=== PATIENT | male | born 1940 | race African-American/Black ===

== ENCOUNTER 2017-02-26 09:58 | Emergency (ER) | payer OTHER ==
[~2017-02-26] VITALS: Ht 177.8 cm; Wt 78.6 kg
[~2017-02-26 09:58] MED LIST: ASPCH81X PO; ENAL5TAB PO; PROP20TA4 PO; TAMS0.4C38 PO; TMPOPS15 OPB; TRAV0.00 OPB; TRSOPS2 OPB; VITAOIN TOP
[2017-02-26 10:16] VITALS: TEMP 36.4; O2SAT 96; Ht 177.8 cm; Wt 78.6 kg
[2017-02-26] MEDS ORDERED: PROMETHAZINE HCL INJ 12.5 MG in SODIUM CHLORIDE 0.9% 50ML 50 ML IV STA (10:30)
[2017-02-26] MEDS ORDERED: SODIUM CHLORIDE 0.9% 500ML 500 ML IV STA (10:30)
--- NOTE | 2017-02-26 10:59 | DIAGNOSTIC IMAGING REPORT ---
CHEST ONE VIEW PORTABLE CLINICAL HISTORY: Nausea, vomiting. COMPARISON STUDY: 10/18/2014 FINDINGS: The cardiac and mediastinal contours are normal. There is no evidence of focal pulmonary consolidation. There is no evidence of failure. No pleural effusions are visualized.[ There is a stable scoliosis. There is suspected right upper lobe emphysema. There is no free intraperitoneal air. IMPRESSION: No active disease in the chest. Electronically signed by: Ajit Urena M.D. 02/26/2017 10:57 AM Dictated Date/Time: 02/26/2017 10:57 AM
[2017-02-26 11:20] LABS: BASO % 0.1 %; BASO ABS # 0.01 K/uL (0-0.2); COMPLETE YES; EOS % 0.9 %; HEMATOCRIT 36.8 % (42-52); IG% 0.2 %; LYMPH ABS # 1.39 K/uL (1.2-3.4); MEAN CELL VOLUME 86.2 fL (80-100); MEAN CORPUSCULAR HEMOGLOBIN 29.5 pg (25-34); MEAN CORPUSCULAR HGB CONC 34.2 g/dl (32-36); MEAN PLATELET VOLUME 10.6 fL (7.4-10.4); MONO % 4.8 %; PLATELET COUNT 157 K/uL (130-400); RED BLOOD COUNT 4.27 M/uL (4.7-6.1)
[2017-02-26 11:38] LABS: BUN/CREATININE RATIO 12.7 (10-20); CALCIUM 9.3 mg/dl (8.5-10.1); CREATININE 1.1 mg/dl (0.60-1.40); MAGNESIUM 1.8 mg/dl (1.8-2.4); POTASSIUM 3.9 mmol/L (3.5-5.1)
--- NOTE | 2017-02-26 13:14 | EMERGENCY ROOM VISIT NOTE ---
History Report prepared by Barrett: Arnoldo Myers Under the Supervision of: Dr. Harley Nugent M.D. First contact with patient: 10:01 Stated Complaint: NAUSEA/ AFIB History of Present Illness The patient is a 76 year old male who presents to the ED with a cc of persistent vomiting beginning shortly prior to arrival. Patient is incarcerated. Eight episodes of vomiting total. Positive dizziness and nausea. Negative abdominal pain, chest pain, SOB, urinary symptoms, or cough. Symptoms began after breakfast. No recent trauma. Last bowel movement was yesterday, and appeared somewhat "watery". Notes that he was given eye drops today shortly prior to breakfast. Reported to have been in a-fib at the care home prior to arrival. No known history of a-fib. Source of History: patient Onset: Shortly prior to arrival Symptom Intensity: eight episodes Quality: other (vomiting) Timing: other (persistent) Associated Symptoms: + nausea, No cough, No chest pain, No SOB, No abdominal pain, No urinary symptoms Note: Additional symptoms: dizziness. Review of Systems See HPI for pertinent positives and negatives. A total of ten systems were reviewed and were otherwise negative. Past Medical & Surgical Medical Problems: (1) Depressive Disorder Nec (2) Dermatophytosis Of Foot (3) Hypertension Nos Family History No pertinent family history stated. Social History Smoking Status: Current Every Day Smoker Housing Status: other Occupation Status: other Current/Historical Medications No Active Prescriptions or Reported Meds Allergies Coded Allergies: No Known Allergies (Unverified , 11/21/11) Physical Exam Vital Signs Date Time Temp Pulse Resp B/P (MAP) Pulse Ox O2 Delivery O2 Flow Rate FiO2 02/26/17 14:04 78 18 144/87 97 02/26/17 13:33 64 16 177/83 98 Room Air 02/26/17 13:13 50 02/26/17 11:32 58 20 139/96 97 Room Air 02/26/17 10:16 96 Room Air 02/26/17 10:16 36.4 53 16 155/88 96 Room Air 02/26/17 10:15 48 Physical Exam GENERAL: Awake, alert, well-appearing, NAD HENT: Normocephalic, atraumatic. arcus senilus. Poor dentition EYES: Normal conjunctiva. Sclera non-icteric. NECK: Supple. No nuchal rigidity. FROM. RESPIRATORY: CTAB, no rhonchi, wheezing, crackles CARDIAC: Bradycardic rate with a regular rhythm, no MRG ABDOMEN: Soft, NTND, BS+ MSK: No chest wall TTP, no LE edema NEURO: GCS 15, CN 2-12 intact, ,5/5 upper extremity strength. Good finger to nose. No dysmetria. No pronator drift. No sensory deficit. SKIN: No rash or jaundice noted. Medical Decision & Procedures ER Provider Diagnostic Interpretation: X-ray: Per my interpretation, radiologist review. CHEST ONE VIEW PORTABLE FINDINGS: The cardiac and mediastinal contours are normal. There is no evidence of focal pulmonary consolidation. There is no evidence of failure. No pleural effusions are visualized.[ There is a stable scoliosis. There is suspected right upper lobe emphysema. There is no free intraperitoneal air. IMPRESSION: No active disease in the chest. Electronically signed by: Ajit Urena M.D. Laboratory Results 02/26/17 11:11 Red Blood Count 4.27, Mean Corpuscular Volume 86.2, Mean Corpuscular Hemoglobin 29.5, Mean Corpuscular Hemoglobin Concent 34.2, Mean Platelet Volume 10.6, Neutrophils (%) (Auto) 77.0, Lymphocytes (%) (Auto) 17.0, Monocytes (%) (Auto) 4.8, Eosinophils (%) (Auto) 0.9, Basophils (%) (Auto) 0.1, Neutrophils # (Auto) 6.32, Lymphocytes # (Auto) 1.39, Monocytes # (Auto) 0.39, Eosinophils # (Auto) 0.07, Basophils # (Auto) 0.01 02/26/17 11:11 Test 02/26/17 11:11 White Blood Count 8.20 K/uL (4.8-10.8) Red Blood Count 4.27 M/uL (4.7-6.1) Hemoglobin 12.6 g/dL (14.0-18.0) Hematocrit 36.8 % (42-52) Mean Corpuscular Volume 86.2 fL (80-100) Mean Corpuscular Hemoglobin 29.5 pg (25-34) Mean Corpuscular Hemoglobin Concent 34.2 g/dl (32-36) Platelet Count 157 K/uL (130-400) Mean Platelet Volume 10.6 fL (7.4-10.4) Neutrophils (%) (Auto) 77.0 % Lymphocytes (%) (Auto) 17.0 % Monocytes (%) (Auto) 4.8 % Eosinophils (%) (Auto) 0.9 % Basophils (%) (Auto) 0.1 % Neutrophils # (Auto) 6.32 K/uL (1.4-6.5) Lymphocytes # (Auto) 1.39 K/uL (1.2-3.4) Monocytes # (Auto) 0.39 K/uL (0.11-0.59) Eosinophils # (Auto) 0.07 K/uL (0-0.5) Basophils # (Auto) 0.01 K/uL (0-0.2) RDW Standard Deviation 45.2 fL (36.4-46.3) RDW Coefficient of Variation 14.4 % (11.5-14.5) Immature Granulocyte % (Auto) 0.2 % Immature Granulocyte # (Auto) 0.02 K/uL (0.00-0.02) Anion Gap 6.0 mmol/L (3-11) Est Creatinine Clear Calc Drug Dose 57.1 ml/min Estimated GFR () 74.1 Estimated GFR (Non- 64.0 BUN/Creatinine Ratio 12.7 (10-20) Calcium Level 9.3 mg/dl (8.5-10.1) Magnesium Level 1.8 mg/dl (1.8-2.4) Total Bilirubin 0.3 mg/dl (0.2-1) Direct Bilirubin 0.1 mg/dl (0-0.2) Aspartate Amino Transf (AST/SGOT) 15 U/L (15-37) Alanine Aminotransferase (ALT/SGPT) 15 U/L (12-78) Alkaline Phosphatase 67 U/L (45-117) Troponin I < 0.015 ng/ml (0-0.045) Total Protein 7.4 gm/dl (6.4-8.2) Albumin 3.5 gm/dl (3.4-5.0) Lipase 95 U/L (73-393) Laboratory results reviewed by me Medications Administered Medications (Trade) Dose Ordered Sig/Jeannine Route Start Time Stop Time Status Last Admin Dose Admin Promethazine HCl 12.5 mg/Sodium Chloride 50.5 ml @ 204 mls/hr NOW STAT IV 02/26/17 10:30 02/26/17 10:44 DC 02/26/17 11:31 204 MLS/HR Sodium Chloride 500 ml @ 500 mls/hr Q1H STAT IV 02/26/17 10:30 02/26/17 11:29 DC 02/26/17 11:30 500 MLS/HR ECG Indication: other (dizziness) Rate (beats per minute): 52 Rhythm: sinus bradycardia Findings: PAC, other (Normal intervals. LAD. No other ST changes or T-wave inversions. ) ED Course 1013: The patient was evaluated in room B7. A complete history and physical exam was performed. 1030: Ordered Sodium Chloride 500 ml @ 500 mls/hr IV, Promethazine HCl 12.5 mg/ Sodium Chloride 50.5 ml @ 204 mls/hr IV. 1225: I spoke with the patient. He would like something to eat. 1335: I reevaluated the patient. Discussed results and discharge instructions: he verbalized understanding and agreement. The patient is ready for discharge. Medical Decision The patient is a 76 year old male with a past medical history of a-fib who presents to the ED with a cc of persistent vomiting beginning shortly prior to arrival. Differential diagnosis includes but is not limited to ; inner ear malfunction, TIA, stroke, medication side effect, and ACS. Patient was seen and evaluated at the bedside. Patient did complain of some mild vertiginous symptoms. Patient had no other signs or symptoms concerning for stroke as he had no other neuro deficits. Patient's lab work was fairly unremarkable. Less likely ACS given a relatively normal EKG albeit sinus bradycardia with PACs. Patient had a negative troponin and no complaints of any chest pain or shortness of breath. Patient's chest x-ray was unremarkable. Patient was able to tolerate by mouth. Symptoms had virtually resolved. No imbalance. Patient was able ambulate without difficulty. Given improvement of symptoms less likely posterior stroke but patient told to return if he had worsening symptoms for further work up, management, and care or if symptomatic trx does not improve symptoms Patient was given strict follow-up discharged, told questions. Patient agreed with plan of care and patient was discharged back home with long enforcement. Medication Reconcilliation Current Medication List: was personally reviewed by me Blood Pressure Screening Patient's blood pressure: Elevated blood pressure Blood pressure disposition: Referred to PCP Impression Primary Impression: Vertigo Additional Impressions: Nausea & vomiting Encounter for smoking cessation counseling Scribe Attestation The scribe's documentation has been prepared under my direction and personally reviewed by me in its entirety. I confirm that the note above accurately reflects all work, treatment, procedures, and medical decision making performed by me. Departure Information Dispostion Home / Self-Care Prescriptions No Active Prescriptions or Reported Meds Referrals Kaleb DIAZ (PCP) Patient Instructions ED Vertigo Unspecified, My [facility] Additional Instructions Please return to the emergency department if you have worsening or recurrent symptoms not amenable to at-home treatment. Please call for a follow-up appointment with her primary care physician. Please take your medications as prescribed. If you have other concerns and/or complaints please feel free to also call your primary care physician's office or return the ED for further evaluation, management, and treatment. Problem Qualifiers Additional Impressions: Nausea & vomiting Vomiting type: unspecified Vomiting Intractability: non-intractable Qualified Codes: R11.2 - Nausea with vomiting, unspecified
[2017-02-26 14:04] VITALS: BP 144/87; PULSE 78; O2SAT 97
== END 2017-02-26 14:05 | disposition home or self-care (01) ==
LOC: EDBD 09:58 → C.EDB 10:00
DX: R42 Dizziness and giddiness (principal); R11.2 Nausea with vomiting, unspecified; Z71.6 Tobacco abuse counseling; I10 Essential (primary) hypertension; F32.9 Major depressive disorder, single episode, unspecified; F17.210 Nicotine dependence, cigarettes, uncomplicated

== ENCOUNTER 2017-03-27 11:37 | Emergency (ER) | payer OTHER ==
[~2017-03-27] VITALS: Ht 177.8 cm; Wt 77.7 kg
[2017-03-27 11:37] VITALS: TEMP 36.4; O2SAT 100; Ht 177.8 cm; Wt 77.7 kg
--- NOTE | 2017-03-27 11:41 | EMERGENCY ROOM VISIT NOTE ---
ED Visit Note First contact with patient: 11:37 Resident Physician Supervision Note: I interviewed and examined the patient. Discussed with Dr. Tucker and agree with findings and plan as documented in the note. Documented By: Pete Shafer
--- NOTE | 2017-03-27 11:45 | EMERGENCY ROOM VISIT NOTE ---
History First contact with patient: 11:37 Stated Complaint: SYNCOPE History of Present Illness To note patient is a poor historian. The patient is a 76 year old male who presents to the Emergency Room presenting after a syncopal episode that was unwitnessed. He notes that he was walking out of the chapel at the alf and then was found on the concrete floor. He does not remember the event and does not recall any chest pain, palpitations, SOB or nausea prior to the event. He has a history of NSTEMI x 1. He has no history of CVA. He smokes heavily, no official diagnosis of COPD. The patient is apparently at baseline according to the alf guards in the room. Source of History: patient, police History Limited By: poor cooperation Review of Systems A 10 point review of systems was completed and negative aside from above Past Medical/Surgical History Medical Problems: (1) Depressive Disorder Nec (2) Dermatophytosis Of Foot (3) Hypertension Nos NSTEMI Family History Patient reports no known family medical history. Social History Smoking Status: Current Every Day Smoker Smokeless Tobacco Use: No Alcohol Use: none Drug Use: none Marital Status: single Housing Status: other Occupation Status: other Current/Historical Medications Scheduled Amlodipine (Norvasc), 5 MG PO DAILY Aspirin (Aspirin Ec), 81 MG PO DAILY Brimonidine Tartrate (Brimonidine Tartrate), 1 DROP OPB BID Dorzolamide Hcl (Trusopt Oph), 1 DROPS OP TID Enalapril (Vasotec), 10 MG PO DAILY Latanoprost (Xalatan 0.005% Oph Kaitlynn), 1 DROPS OP HS Omeprazole (Prilosec), 20 MG PO DAILY Pilocarpine Hcl (Isopto Carpine), 1 DROP OPB QID Primidone (Mysoline), 100 MG PO DAILY Propranolol (Inderal), 40 MG PO BID Tamsulosin HCl (Tamsulosin HCl), 0.8 MG PO HS Timolol Maleate (Timolol 0.5% Oph Soln 15 Ml), 1 DROP OPB DAILY Allergies NKA Physical Exam Vital Signs Date Time Temp Pulse Resp B/P (MAP) Pulse Ox O2 Delivery O2 Flow Rate FiO2 03/27/17 13:15 51 21 119/70 97 Room Air 03/27/17 13:15 51 119/70 53 123/79 71 106/70 03/27/17 12:00 48 17 107/70 97 Room Air 03/27/17 11:53 51 03/27/17 11:37 36.4 44 22 103/67 100 Room Air 03/27/17 11:37 100 Room Air Physical Exam General: ambulatory, not in acute distress Skin: no rashes noted, no suspicious lesions, no areas of inflammations/ erythema noted, 2 cm laceration on right occiput CVS: S1/ S2 noted, RRR, no rubs/ murmurs noted, no cyanosis RVS: not in acute respiratory distress, no wheezing/ rales/ crackles noted, poor air movement ENT:no erythema/ injection/ ulcerations noted in the pharynx, no lymphadenopathy , very poor denition Neck: inspection WNL, full ROM of neck, no bruits noted ABD: BSx4, no pain/ tenderness on palpation, no organomegaly MSK: inspection of all limbs WNL, motor and sensation intact in all limbs, no swelling/ pain on palpation of joints NVS: CN ii-xii WNL, PERRL, EOMI, sensation intact in all extremities, DTR +2 Lymph: No lymphadenopathy palpable Medical Decision & Procedures ER Provider Diagnostic Interpretation: HEAD WITHOUT CONTRAST (CT) CLINICAL HISTORY: 76 years-old Male presenting with head injury. TECHNIQUE: Multidetector CT imaging of the head was performed without the use of intravenous contrast. IV contrast: None. A dose lowering technique was used consistent with the principles of ALARA (as low as reasonably achievable). COMPARISON: 10/18/2014. CT DOSE (mGy.cm): The estimated cumulative dose is 537.48 mGy.cm. FINDINGS: Powerhouse Attendant topogram: Unremarkable. Proportional ventricular and sulcal prominence, likely age-related parenchymal volume loss. Periventricular and subcortical white matter hypoattenuation, nonspecific but likely indicative of chronic small vessel ischemic change. No mass effect or midline shift. No hemorrhage or acute territorial infarct. No extra-axial fluid collection. Paranasal sinuses and mastoid air cells clear. Calvarium intact. IMPRESSION: 1. No acute intracranial pathology. CHEST ONE VIEW PORTABLE CLINICAL HISTORY: 76 years-old Male presenting with syncope. TECHNIQUE: Portable upright AP view of the chest was obtained. COMPARISON: 02/26/2017. FINDINGS: Tortuosity of the descending thoracic aorta. Cardiac silhouette normal in size. Hyperinflation. No focal infiltrate. No pleural effusion or pneumothorax. Degenerative changes of the thoracic spine. Upper abdomen normal. IMPRESSION: 1. Hyperinflation suggests emphysema. No focal infiltrate. Laboratory Results 03/27/17 13:10 Red Blood Count 4.10, Mean Corpuscular Volume 87.1, Mean Corpuscular Hemoglobin 28.8, Mean Corpuscular Hemoglobin Concent 33.1, Mean Platelet Volume 11.0, Neutrophils (%) (Auto) 77.9, Lymphocytes (%) (Auto) 14.5, Monocytes (%) (Auto) 5.3, Eosinophils (%) (Auto) 1.8, Basophils (%) (Auto) 0.1, Neutrophils # (Auto) 8.63, Lymphocytes # (Auto) 1.61, Monocytes # (Auto) 0.59, Eosinophils # (Auto) 0.20, Basophils # (Auto) 0.01 03/27/17 13:10 Test 03/27/17 11:37 03/27/17 13:10 Creatine Kinase MB Ratio (0-3.0) White Blood Count 11.08 K/uL (4.8-10.8) Red Blood Count 4.10 M/uL (4.7-6.1) Hemoglobin 11.8 g/dL (14.0-18.0) Hematocrit 35.7 % (42-52) Mean Corpuscular Volume 87.1 fL (80-100) Mean Corpuscular Hemoglobin 28.8 pg (25-34) Mean Corpuscular Hemoglobin Concent 33.1 g/dl (32-36) Platelet Count 166 K/uL (130-400) Mean Platelet Volume 11.0 fL (7.4-10.4) Neutrophils (%) (Auto) 77.9 % Lymphocytes (%) (Auto) 14.5 % Monocytes (%) (Auto) 5.3 % Eosinophils (%) (Auto) 1.8 % Basophils (%) (Auto) 0.1 % Neutrophils # (Auto) 8.63 K/uL (1.4-6.5) Lymphocytes # (Auto) 1.61 K/uL (1.2-3.4) Monocytes # (Auto) 0.59 K/uL (0.11-0.59) Eosinophils # (Auto) 0.20 K/uL (0-0.5) Basophils # (Auto) 0.01 K/uL (0-0.2) RDW Standard Deviation 46.7 fL (36.4-46.3) RDW Coefficient of Variation 14.8 % (11.5-14.5) Immature Granulocyte % (Auto) 0.4 % Immature Granulocyte # (Auto) 0.04 K/uL (0.00-0.02) Anion Gap 4.0 mmol/L (3-11) Est Creatinine Clear Calc Drug Dose 57.1 ml/min Estimated GFR () 74.1 Estimated GFR (Non- 64.0 BUN/Creatinine Ratio 16.3 (10-20) Calcium Level 8.7 mg/dl (8.5-10.1) Total Bilirubin 0.4 mg/dl (0.2-1) Aspartate Amino Transf (AST/SGOT) 17 U/L (15-37) Alanine Aminotransferase (ALT/SGPT) 20 U/L (12-78) Alkaline Phosphatase 68 U/L (45-117) Creatine Kinase MB 2.7 ng/ml (0.5-3.6) Troponin I < 0.015 ng/ml (0-0.045) Total Protein 7.2 gm/dl (6.4-8.2) Albumin 3.3 gm/dl (3.4-5.0) Globulin 3.9 gm/dl (2.5-4.0) Albumin/Globulin Ratio 0.8 (0.9-2) Chemistry Specimen Hemolysis Medications Administered Medications (Trade) Dose Ordered Sig/Jeannine Route Start Time Stop Time Status Last Admin Dose Admin Sodium Chloride 1,000 ml @ 999 mls/hr Q1H1M ONCE IV 03/27/17 12:00 03/27/17 13:00 DC 03/27/17 13:12 999 MLS/HR Albuterol/ Ipratropium (Duoneb) 3 ml NOW ONCE INH 03/27/17 12:15 03/27/17 12:16 DC 03/27/17 12:50 3 ML ECG Indication: syncope Rate (beats per minute): 49 Rhythm: sinus bradycardia Findings: no acute ischemic change, no ectopy Change: no significant change ED Course 1145: Patient was assessed and evaluated by the resident 1215; NSS bolus of 1 L, Duoneb 1245: Improvement in air entry upon reassessment 1400: Discussed discharge with patient and agreeable Medical Decision Differential diagnosis: Etiologies such as vasovagal event, infection, hypoglycemia, electrolyte abnormalities, cardiac sources, intracerebral event, toxicologic, neurologic, as well as others were entertained. This is a 76yo m that is presenting to us after an unwitnessed syncopal episode. CMP was completed and did not reveal an acute process or abnormal electrolytes. The patient's CBC revealed a mild leukocytosis however there was no source of infection. It is most likely stress induced. Anemia is close to the patient's BL and unlikely the source of syncope. CXR was suggestive of emphysema and since the patient had poor air movement a duoneb was administered and there was improved air entry after administration. The patient CT head did not reveal any intracranial pathology. This may have been a vasovagal event vs orthostasis after getting up from a pew as no acute findings at this time. Discussed with patient and guards about follow up with cardiology and discussed discharge and they were agreeable. Blood Pressure Screening Patient's blood pressure: Normal blood pressure Impression Primary Impression: Syncope Departure Information Dispostion Other Condition GOOD Referrals Kaleb DIAZ (PCP)
[2017-03-27] MEDS ORDERED: SODIUM CHLORIDE 0.9% 1000ML 1,000 ML IV ONE (12:00)
[2017-03-27] MEDS ORDERED: ALBUT/IPRATROP 3MG/0.5MG NEB 3 ML VIAL INH ONE (12:15)
--- NOTE | 2017-03-27 12:43 | DIAGNOSTIC IMAGING REPORT ---
CHEST ONE VIEW PORTABLE CLINICAL HISTORY: 76 years-old Male presenting with syncope. TECHNIQUE: Portable upright AP view of the chest was obtained. COMPARISON: 02/26/2017. FINDINGS: Tortuosity of the descending thoracic aorta. Cardiac silhouette normal in size. Hyperinflation. No focal infiltrate. No pleural effusion or pneumothorax. Degenerative changes of the thoracic spine. Upper abdomen normal. IMPRESSION: 1. Hyperinflation suggests emphysema. No focal infiltrate. Electronically signed by: Franki Christensen M.D. 03/27/2017 12:42 PM Dictated Date/Time: 03/27/2017 12:40 PM
[2017-03-27] MEDS ORDERED: ALPOPSD OPB (13:06)
[2017-03-27] MEDS ORDERED: DORZ2SOL17 OP (13:06)
[2017-03-27] MEDS ORDERED: FLM4 PO (13:06)
[2017-03-27] MEDS ORDERED: ENAL10TA88 PO (13:06)
[2017-03-27] MEDS ORDERED: PILO1SOL3 OPB (13:06)
[2017-03-27] MEDS ORDERED: AMLO-110 PO (13:06)
[2017-03-27] MEDS ORDERED: PROP20TA67 PO (13:06)
[2017-03-27] MEDS ORDERED: LATA0.5S OP (13:06)
[2017-03-27] MEDS ORDERED: PRIM50TA29 PO (13:06)
[2017-03-27] MEDS ORDERED: ASPI81TA28 PO (13:06)
[2017-03-27] MEDS ORDERED: PRLSR20 PO (13:06)
[2017-03-27] MEDS ORDERED: TMPOPS15 OPB (13:06)
[2017-03-27 13:32] LABS: BASO % 0.1 %; BASO ABS # 0.01 K/uL (0-0.2); COMPLETE YES; EOS % 1.8 %; HEMATOCRIT 35.7 % (42-52); IG% 0.4 %; LYMPH % 14.5 %; LYMPH ABS # 1.61 K/uL (1.2-3.4); MEAN CELL VOLUME 87.1 fL (80-100); MEAN CORPUSCULAR HEMOGLOBIN 28.8 pg (25-34); MEAN CORPUSCULAR HGB CONC 33.1 g/dl (32-36); MONO % 5.3 %; NEUT % 77.9 %; PLATELET COUNT 166 K/uL (130-400); WHITE BLOOD COUNT 11.08 K/uL (4.8-10.8)
[2017-03-27 13:50] LABS: ALB/GLOB RATIO 0.8 (0.9-2); ALKALINE PHOSPHATASE 68 U/L (45-117); ALT/SGPT 20 U/L (12-78); AST/SGOT 17 U/L (15-37); BLOOD UREA NITROGEN 18 mg/dl (7-18); BUN/CREATININE RATIO 16.3 (10-20); CALCIUM 8.7 mg/dl (8.5-10.1); CARBON DIOXIDE 27 mmol/L (21-32); CHLORIDE 110 mmol/L (98-107); GLUCOSE 93 mg/dl (70-99); POTASSIUM 4.8 mmol/L (3.5-5.1); SODIUM 141 mmol/L (136-145)
--- NOTE | 2017-03-27 13:53 | DIAGNOSTIC IMAGING REPORT ---
HEAD WITHOUT CONTRAST (CT) CLINICAL HISTORY: 76 years-old Male presenting with head injury. TECHNIQUE: Multidetector CT imaging of the head was performed without the use of intravenous contrast. IV contrast: None. A dose lowering technique was used consistent with the principles of ALARA (as low as reasonably achievable). COMPARISON: 10/18/2014. CT DOSE (mGy.cm): The estimated cumulative dose is 537.48 mGy.cm. FINDINGS: Barrel Assembly Inspector topogram: Unremarkable. Proportional ventricular and sulcal prominence, likely age-related parenchymal volume loss. Periventricular and subcortical white matter hypoattenuation, nonspecific but likely indicative of chronic small vessel ischemic change. No mass effect or midline shift. No hemorrhage or acute territorial infarct. No extra-axial fluid collection. Paranasal sinuses and mastoid air cells clear. Calvarium intact. IMPRESSION: 1. No acute intracranial pathology. Electronically signed by: Franki Christensen M.D. 03/27/2017 1:52 PM Dictated Date/Time: 03/27/2017 1:49 PM
[2017-03-27 15:05] VITALS: BP 133/79; PULSE 59; O2SAT 98
== END 2017-03-27 15:05 | disposition home or self-care (01) ==
LOC: EDBD 11:37 → C.EDC 11:38
DX: R55 Syncope and collapse (principal); F32.9 Major depressive disorder, single episode, unspecified; I10 Essential (primary) hypertension; I25.2 Old myocardial infarction; F17.210 Nicotine dependence, cigarettes, uncomplicated; Z79.82 Long term (current) use of aspirin; Z79.899 Other long term (current) drug therapy

== ENCOUNTER → 2017-10-07 | Day surgery (SDC) | payer OTHER ==
[2017-07-29 09:21] VITALS: BMI 24.0
[2017-10-04 11:17] VITALS: Ht 175.3 cm; Wt 74.1 kg
[~2017-10-07] VITALS: Ht 175.3 cm; Wt 74.1 kg
[~2017-10-07] MED LIST changes: +500ML BSS 0.3ML EPI 1:1000PF IRRIG ONE; +ACETAMINOPHEN 325 MG TAB PO PRN; +AMLO-110 PO; +AMVISC PLUS 0.8ML SYRINGE INT OCU ONE; -ASPCH81X PO; +ASPI81TA28 PO; +ATROPINE SULFATE 0.1 MG/ML 5ML SYR IV PRN; +BRIM0.15 OPB; +BSS FLUSH ONE; +COMPOUND EXT; +CYCLOPENTOLATE HCL 1% OP SOLN PER DROP CHARGE OPR SCH; +DORZ2SOL17 OPB; +ENAL10TA88 PO; -ENAL5TAB PO; +EpHEDrine SULFATE INJ 50 MG/ML AMP IV PRN; +EpINEphrine INJ 1MG/ML AMP 1 MG/ML AMP ONE; +FINA5TAB PO; +GATIFLOXACIN OP SOLN PER DROP CHARGE OPR SCH; +KETOROLAC 0.5% OP SOLN PER DROP CHARGE OPR SCH; +LACTATED RINGER'S 1000ML 500 ML IV SCH; +LATA0.009 OPB; +LIDOCAINE 3.5% OPH GEL PER APPLICATION CHARGE ONE; +LIDOCAINE HCL 1% MPF 2 ML VIAL ONE; +MIDAZOLAM HCL 1 MG/ML 2ML VIAL ONE; +MIX: 4ML BSS 1ML EPI 1:1000 PF INSTIL ONE; +OCUCOAT 1 ML SOLN IO ONE; +PHENYLEPHRINE HCL 10% OP SOLN PER DROP CHARGE OPR SCH; +PHENYLEPHRINE HCL 2.5% OP SOLN PER DROP CHARGE OPR SCH; +POVIDONE-IODINE OP SOLN 30 ML BTL ONE; +PRIM50TA34 PO; +PRLSR20 PO; -PROP20TA4 PO; +PROPARACAINE 0.5% OP SOLN PER DROP CHARGE OPR SCH; +TOBRAMYCIN/DEXAMETHASONE OPH OINT PER APPLN CHARGE ONE; -TRAV0.00 OPB; +TROPICAMIDE 1% OP SOLN PER DROP CHARGE OPR SCH; -TRSOPS2 OPB; -VITAOIN TOP; +[UNRECOGNIZED DRUG - CODE] OPB
[2017-10-07] MEDS: TROPICAMIDE 1% OP SOLN PER DROP CHARGE OPR SCH ×2 (06:38→06:45)
[2017-10-07] MEDS: PHENYLEPHRINE HCL 2.5% OP SOLN PER DROP CHARGE OPR SCH ×2 (06:39→06:44)
[2017-10-07] MEDS: CYCLOPENTOLATE HCL 1% OP SOLN PER DROP CHARGE OPR SCH ×2 (06:41→06:46)
[2017-10-07] MEDS: KETOROLAC 0.5% OP SOLN PER DROP CHARGE OPR SCH ×2 (06:42→06:47)
[2017-10-07] MEDS: GATIFLOXACIN OP SOLN PER DROP CHARGE OPR SCH ×2 (06:43→06:53)
--- NOTE | 2017-10-07 06:59 | History & Physical Bridge - SC ---
H&P Re-Evaluation Bridge Note: I have examined the patient, reviewed the History & Physical and in the interval since the performance of the History & Physical I have noted the following changes of clinical significance: No changes noted
--- NOTE | 2017-10-07 07:27 | [facility] Operative Report ---
Operative Report Date of Service Oct 07, 2017. Operative Report 1. PREOPERATIVE DIAGNOSIS: Cataract of the right eye. 2. POSTOPERATIVE DIAGNOSIS: Same. 3. PROCEDURE: Phacoemulsification with intraocular lens implantation of the right eye. SURGEON: Dr. Arnoldo Palmer. ANESTHESIA: Topical Lidocaine gel, 1% Non- Preserved intracameral Lidocaine, and monitored intravenous sedation. INDICATIONS FOR THE PROCEDURE: The patient is a 76 - year-old male with a history of cataract of the right eye causing significant visual impairment. The details of the proposed procedure were explained to the patient who asked appropriate questions and following discussion of all risks, benefits and alternatives agreed to have the procedure done. The patient had a know history of taking of flomax. 4. OPERATION AND FINDINGS: DESCRIPTION OF PROCEDURE: After informed consent was obtained, the patient was brought to the Operating Room at the [facility]. The patient was placed in a supine position and then the right eye was prepped and draped in the usual sterile fashion for intraocular surgery. A drop of topical Lidocaine gel was placed in the operative eye. A wire lid speculum was then placed in the fornices. A corneal paracentesis was then created temporally. The Non-Preserved Lidocaine was then instilled into the anterior chamber. The anterior chamber was then pressurized with viscoelastic. A malyugin ring was inserted to dilate and stabilize the pupil. A 2.0 mm clear corneal incision was then created temporally. A cystotome was inserted into the anterior chamber and used to create a tear in the anterior lens capsule. This capsular tear was then used to create a small flap and the flap was dragged in a counterclockwise direction in order to create a continuous curvilinear capsulorrhexis. Hydrodissection was accomplished with balanced salt solution. Phacoemulsification of the lens nucleus was then performed in a standard divide- and-conquer technique. The phaco time was 42 seconds with an average power of 17 %. The remaining cortical material was removed using irrigation aspiration. The capsular bag was then filled with viscoelastic. A [employer] Lomb MI60L + 19.0 diopters lens was then loaded into the injector and injected into the capsular bag. The malyugin ring was removed. The remaining viscoelastic was removed with the irrigation aspiration handpiece. The wound was hydrated and then checked and found to be watertight. The intraocular pressure was checked and found to be adequate. The wire lid speculum was removed and the patient's face was cleaned and dried. TobraDex ointment was placed in the inferior fornix. The patient was discharged to the Recovery Room having tolerated the procedure well. There were no complications. The patient will be seen tomorrow in the office for follow-up. I attest to the content of the Intraoperative Record and any orders documented therein. Any exceptions are noted below.
--- NOTE | 2017-10-07 07:28 | Discharge Instructions-SurgCtr ---
Discharge Instructions Date of Service Oct 07, 2017. Visit Reason for Visit: [id number] Discharge Discharge Diagnosis / Problem: cataract Discharge Goals Goal(s): Improve function Activity Recommendations Activity Limitations: per Instructions/Follow-up section Anesthesia . Post Anesthesia Instructions: If you have had General Anesthesia or IV Sedation: * Do not drive today. * Resume driving when surgeon permits. * Do not make important decisions or sign legal documents today. * Call surgeon for: 1. Temperature elevations greater than 101 degrees F. 2. Uncontrollable pain. 3. Excessive bleeding. 4. Persistent nausea and vomiting. 5. Medication intolerance (nausea, vomiting or rash). * For nausea and vomiting use only clear liquids such as: tea, soda, bouillon until nausea subsides, then gradually increase diet as tolerated. * If you have any concerns or questions, call your surgeon's office. If physician is unavailable and it is an emergency, call 911 or go to the nearest emergency room. . Diet Recommendations Home Diet: resume previous diet Procedures Procedures Performed: Right Cataract Phacoemulsification With Intraocular Lens Implant Pending Studies Studies pending at discharge: no Medical Emergencies . Who to Call and When: Medical Emergencies: If at any time you feel your situation is an emergency, please call 911 immediately. . Non-Emergent Contact Non-Emergency issues call your: [facility] . . "Provider Documentation" section prepared by Arnoldo Palmer. .
--- NOTE | 2017-10-07 08:00 | Anesthesiology Progress Note ---
Anesthesia Post Op Note Date & Time Oct 07, 2017 at 08:00 Vital Signs Vital Signs Past 12 Hours Date Time Temp Pulse Resp B/P (MAP) Pulse Ox O2 Delivery O2 Flow Rate FiO2 10/07/17 07:29 36.6 58 12 144/81 (102) 100 Room Air 10/07/17 06:21 36.4 67 20 132/78 (96) 100 Room Air Notes Mental Status: alert / awake / arousable, participated in evaluation Nausea / Vomiting: adequately controlled Pain: adequately controlled Airway Patency, RR, SpO2: stable & adequate BP & HR: stable & adequate Hydration State: stable & adequate Anesthetic Complications: no major complications apparent
[2017-10-07 08:01] VITALS: BP 134/76; PULSE 55; O2SAT 99
== END | disposition home or self-care (01) ==
LOC: X.SURG 06:03
PROVIDERS: ATTEND Ophthalmology
DX: H26.9 Unspecified cataract (principal); I10 Essential (primary) hypertension; J44.9 Chronic obstructive pulmonary disease, unspecified; I25.2 Old myocardial infarction; F32.9 Major depressive disorder, single episode, unspecified; Z79.899 Other long term (current) drug therapy; Z79.82 Long term (current) use of aspirin; Z90.89 Acquired absence of other organs; Z87.891 Personal history of nicotine dependence; Z85.46 Personal history of malignant neoplasm of prostate; Z98.42 Cataract extraction status, left eye

== ENCOUNTER 2018-09-08 14:23 | Inpatient (IN) ==
[2018-09-08] MEDS ORDERED: SODIUM CHLORIDE 0.9% 1000ML 2,000 ML IV ONE (15:01)
[2018-09-08] MEDS ORDERED: VANCOMYCIN CONSULT ACTIVE PRN ×2 (15:02→18:47)
[2018-09-08] MEDS ORDERED: PIPERACILLIN/TAZOBACTAM 4.5 GM/120 ML BAG IV ONE (15:02)
[2018-09-08] MEDS ORDERED: VANCOMYCIN HCL 1,250 MG in SODIUM CHLORIDE 0.9% 500 ML IV ONE (15:02)
--- NOTE | 2018-09-08 15:21 | XRay Report ---
XR chest 1V portable HISTORY: Sepsis COMPARISON: Chest 03/27/2017. FINDINGS: Slightly rotated study. The lungs are clear. The heart is normal in size. No pleural effusi ons. No pneumothorax. Suspect mild emphysema. IMPRESSION: No significant change compared to the prior study. No acute process. Electronically signed by: Chuck Medrano M.D. 09/08/2018 3:19 PM
[2018-09-08 15:23] LABS: Eosinophils # (auto) 0.04 K/uL (0-0.5); Eosinophils % (auto) 0.4 %; Hematocrit (blood only) 36.1 % (42-52); Hemoglobin 12.3 g/dL (14.0-18.0); Immature Granulocytes # (auto) 0.04 K/uL (0.00-0.02); Immature Granulocytes % (auto) 0.4 %; Lymphocytes # (auto) 0.47 K/uL (1.2-3.4); Lymphocytes % (auto) 4.6 %; Mean Corpuscular Hgb Conc 34.1 g/dL (32-36); Mean Corpuscular Volume 86.4 fL (80-100); Mean Platelet Volume 11.5 fL (7.4-10.4); Monocytes % (auto) 6.8 %; Neutrophils # (auto) 9.07 K/uL (1.4-6.5); Neutrophils % (auto) 87.8 %; Platelet Count 220 K/uL (130-400); RDW Coefficient of Variation 14.6 % (11.5-14.5); RDW Standard Deviation 45.2 fL (36.4-46.3); Red Blood Count 4.18 M/uL (4.7-6.1); White Blood Count 10.32 K/uL (4.8-10.8)
[2018-09-08 15:49] LABS: Base Excess VBG -0.4 mEq/L; pH VBG 7.43 (7.36-7.41)
[2018-09-08 15:52] LABS: Appearance Urine Cloudy (Clear); Bacteria Urine Automated 1+ (Negative); Bilirubin Urine Negative (Negative); Blood Urine 2+ (Negative); Color Urine Yellow; Epithelial Cell Urine Auto 0-5 /lpf (0-5); Glucose Urine UA Negative (Negative); Ketones Urine Negative (Negative); Leukocyte Esterase Urine 3+ (Negative); Nitrite Urine Negative (Negative); RBC Urine Automated >30 /hpf (0-4); Urobilinogen Urine Negative (Negative); WBC Urine Automated >30 /hpf (0-5)
[2018-09-08 15:54] LABS: Albumin Globulin Ratio 0.6 (0.9-2); Albumin Level 3.2 gm/dl (3.4-5.0); BUN Creatinine Ratio 10.9 (10-20); Bilirubin,Total 0.3 mg/dl (0.2-1); Calcium 8.7 mg/dl (8.5-10.1); Creatinine Clr Calc Pharmacy 40.2 ml/min; Est GFR (Non-African American) 49.1; Globulin 5.7 gm/dl (2.5-4.0); Phosphorus 1.6 mg/dl (2.5-4.9); Total Protein 8.9 gm/dl (6.4-8.2); Troponin I 0.105 ng/ml (0-0.045)
[2018-09-08 16:12] LABS: Protein Urine 1+ (Negative)
[2018-09-08] MEDS ORDERED: POTASSIUM PHOS 3 MMOL/1 ML INFUSION IV STA (16:14)
--- NOTE | 2018-09-08 16:44 | History & Physical Report ---
Date of Service September 08, 2018 Assessment & Plan (1) Sepsis: This patient is a 77-year-old male prisoner with a history of prostate cancer, glaucoma, HTN, GERD, presumed tremor, and depression, with NSTEMI in 2012, who presents to the ER with fevers and chills, along with evidence of UTI on a catheterized sample at the present today. He apparently had a urine catheterization for retention approximately 1 week ago but that urine culture is reviewed in the records showed mixed darrion and there were no nitrates in the urinalysis at that time. Since then, he has had daily hematuria and then spiked a fever on the day of admission to 102.2. He had another catheterized sample which did show nitrates and given the fever and the tachycardia, he was sent to the ER for further evaluation. He denies any abdominal or flank pain. The [facility] guards that are with him do report that he was not acting like himself and was more confused when he first came to the ER, but since receiving antibiotics and IV fluids, he is starting to return to normal mental status. He did have a mildly elevated troponin at 0.1 but denies any chest pain or shortness of breath. His ECG was unchanged from previous with an incomplete right bundle branch block and was with sinus tachycardia. He did not have a f ever in the ER, however he was given Tylenol at the [facility] prior to arrival. His urinalysis here was grossly abnormal, and he had doyle red urine that he was voiding spontaneously. In the ER, he was given IV fluids, IV vancomycin and Zosyn. With tachypnea, tachycardia, fever prior to arrival documented at 102.2. With urinary tract infection evident with a grossly abnormal urinalysis. CT abdomen/pelvis with evidence of cystitis and enlarged prostate. Lactate is normal -Admit to medical floor with telemetry given the sepsis -Continue IV vancomycin and Zosyn started in the ER for broad-spectrum empiric coverage -Follow blood cultures, urine culture -Given 2 L of normal saline in the ER, will continue volume resuscitation for low normal blood pressure with normal saline at 125 mL's per hour -Tylenol as needed for fevers -Follow CBC in the morning (2) Acute UTI: With grossly abnormal UA. He had an abnormal UA on urinalysis at the present 1 week ago but was without nitrate and urine culture grew less than 10,000 colonies of mixed darrion that was likely contaminant. Possibly given straight catheterization at that time, he had trauma to the prostate and is now here with gross hematuria possibly hemorrhagic prostatitis, along with sepsis as above. -Treating with IV vancomycin and Zosyn as above -Follow urine culture -Consulting urology as below (3) Hematuria: Possibly hemorrhagic prostatitis as above, with recent straight catheterization at the present -With a history of prostate cancer and heterogenous Yasir enlarged prostate on CT scan, no hydronephrosis but has evidence of chronic bladder outlet obstruction -Consult urology -Follow and if unable to pass urine, will Place Contreras catheter (4) Enlarged prostate: As seen on CT scan, with history of prostate cancer -Consult urology as above -Continue home finasteride and Flomax (5) Glaucoma: Stable -Continue home eyedrops (6) Tremor: Presumed diagnosis given that he is on primidone -Continue primidone (7) GERD (gastroesophageal reflux disease): -Continue PPI (8) History of prostate cancer: Status post surgery, unknown other treatment is no documentation available and patient unsure (9) History of non-ST elevation myocardial infarction (NSTEMI): History of this in the past from review of records seems to be myocardial demand ischemia -Given elevated troponin here, will continue baby aspirin once daily for now despite hematuria and follow --He is notably not on a beta-madison or statin drug-I do not think he has proven CAD and therefore not necessarily indicated (10) Depression: Stable Review of his medication list does not currently show any medications to treat depression but this is listed as a diagnosis on his records (11) HTN (hypertension), benign: Blood pressures mildly elevated on arrival and then dropped to low normal -Will hold home amlodipine and enalapril for now -Restart meds when blood pressure rises again -Follow BMP and renal function (12) Elevated troponin: Troponin 0.1 on arrival, ECG without ischemic changes Could be myocardial demand ischemia given tachycardia and demand in the setting of sepsis. He does not have any chest pain -Follow on telemetry -Check resting echocardiogram -Trend serial troponin and ECG (13) Current smoker: Encourage cessation He does have evidence of emphysema on chest x-ray but reports no baseline pulmonary symptoms -Follow and offer nicotine patch as needed (14) Anemia: Normocytic anemia with hemoglobin mildly low at 12.3 Iron studies on labs done a week ago at the [facility] show anemia of chronic disease pattern -Could be some acute blood loss from hematuria -Follow CBC (15) Hypophosphatemia: Phosphorus low on arrival at 1.6-replaced with IV phosphorus in the ER -Follow phosphorus level in the morning (16) Hypomagnesemia: Magnesium level low at 1.6 on arrival - will replace with magnesium sulfate 2 g IV -Follow magnesium level in the morning (17) DVT prophylaxis: No chemical means for DVT prophylaxis at this time given gross hematuria, SCDs only Disposition-admit to telemetry and expect at least a 2 midnight stay for sepsis, eventually would go back to the [facility] History of Present Illness Chief Complaint: Fever, UTI, hematuria Primary Care Provider: JOE Manuel This patient is a 77-year-old male prisoner with a history of prostate cancer, glaucoma, HTN, GERD, presumed tremor, and depression, with NSTEMI in 2011, who presents to the ER with fevers and chills, along with evidence of UTI on a catheterized sample at the present today. He apparently had a urine catheterization for retention approximately 1 week ago but that urine culture is reviewed in the records showed mixed darrion and there were no nitrates in the urinalysis at that time. Since then, he has had daily hematuria and then spiked a fever on the day of admission to 102.2. He had another catheterized sample which did show nitrates and given the fever and the tachycardia, he was sent to the ER for further evaluation. He denies any abdominal or flank pain. The [facility] guards that are with him do report that he was not acting like himself and was more confused when he first came to the ER, but since receiving antibiotics and IV fluids, he is starting to return to normal mental status. He did have a mildly elevated troponin at 0.1 but denies any chest pain or shortness of breath. His ECG was unchanged from previous with an incomplete right bundle branch block and was with sinus tachycardia. He did not have a fever in the ER, however he was given Tylenol at the [facility] prior to arrival. His urinalysis here was grossly abnormal, and he had doyle red urine that he was voiding spontaneously. In the ER, he was given IV fluids, IV vancomycin and Zosyn. He will be admitted for sepsis, UTI, and gross hematuria. Allergies Allergy/AdvReac Type Severity Reaction Status Date / Time Bactrim Allergy Unknown . Verified 10/07/17 06:20 Home Medications Home Medications Medication Instructions Recorded Confirmed Type amlodipine 5 mg PO DAILY 09/08/18 09/08/18 History aspirin 81 mg PO DAILY 09/08/18 09/08/18 History brimonidine 1 drp OPHTHALMIC (EYE) BID 09/08/18 09/08/18 History dorzolamide 1 drp OPB BID 09/08/18 09/08/18 History enalapril maleate 10 mg PO DAILY 09/08/18 09/08/18 History finasteride 5 mg PO QPM 09/08/18 09/08/18 History latanoprost 1 drp OPB DAILY 09/08/18 09/08/18 History omeprazole 20 mg PO DAILY 09/08/18 09/08/18 History pilocarpine HCl 1 drp OPB QID 09/08/18 09/08/18 History prednisolone acetate 1 drp OPR QID 09/08/18 09/08/18 History primidone 100 mg PO DAILY 09/08/18 09/08/18 History tamsulosin 0.8 mg PO HS 09/08/18 09/08/18 History timolol 1 drp OPB BID 09/08/18 09/08/18 History Past Med/Surg History Medical History Chest pain (Acute) Shortness of breath (Acute) Depression GERD (gastroesophageal reflux disease) Glaucoma HTN (hypertension), benign History of non-ST elevation myocardial infarction (NSTEMI) History of prostate cancer Tremor Surgical History History of appendectomy History of prostate surgery Family History Other Family history non-contributory Social History Preferred Language: Qatari Current Living Situation: Other Current Living Situation Comment: [facility] current occupation: incarcerated for at least 25 years; previously was an regional manager Feels Safe at Home: Yes Smoking Status: Current every day smoker Hx Alcohol Use: No Hx Substance Use: No Review of Systems All systems reviewed & are unremarkable except as noted in HPI & below (Denies headache or lightheadedness, denies sore throat, cough, nasal congestion. Denies chest pain or shortness of breath. Denies abdominal pain or back pain. Positive for gross hematuria, no constipation or diarrhea except for occasional loose stool in the last week.) Physical Exam Vital Signs (Past 24 Hours): Last Vital Signs Temp 37.3 C 09/08/18 14:34 Pulse 105 H 09/08/18 16:10 Resp 27 H 09/08/18 16:10 BP 106/64 09/08/18 16:00 Pulse Ox 94 09/08/18 16:10 Constitutional: WD/WN, vitals as above Eyes: PERRL, conjunctivae normal, anicteric sclerae ENMT: Ears: no hearing impairment and no external ear abnormality Nose: no external nose abnormality Mouth: + oral mucosal abnormality (Dry mucous membranes) Neck: trachea midline, no thyromegaly Respiratory: normal respiratory effort, lungs clear to auscultation Cardiovascular: RRR, no murmur, no edema Gastrointestinal (Abdomen): normal bowel sounds, soft, nontender, no hepatosp lenomegaly Musculoskeletal: Extremities: extremities normal to inspection; no cyanosis and no clubbing Skin: no rashes, warm and dry Neurologic: moves all extremities and awake; no focal motor deficits Psychiatric: A+Ox3, euthymic affect Genitourinary: no testicular masses, no penis abnormality Results & Data Laboratory Results 09/08/18 09/08/18 09/08/18 Range/Units 17:36 16:15 16:15 WBC (4.8-10.8) K/uL RBC (4.7-6.1) M/uL Hgb (14.0-18.0) g/dL Hct (42-52) % MCV (80-100) fL MCH (25-34) pg MCHC (32-36) g/dL RDW Std Deviation (36.4-46.3) fL RDW Coeff of [place] (11.5-14.5) % Plt Count (130-400) K/uL MPV (7.4-10.4) fL Immature Gran % (Auto) % Neut % (Auto) % Lymph % (Auto) % [place] % (Auto) % Eos % (Auto) % Baso % (Auto) % Immature Gran # (Auto) (0.00-0.02) K/uL Neut # (Auto) (1.4-6.5) K/uL Lymph # (Auto) (1.2-3.4) K/uL [place] # (Auto) (0.11-0.59) K/uL Eos # (Auto) (0-0.5) K/uL Baso # (Auto) (0-0.2) K/uL PT 11.2 INR 1.1 APTT 26.5 PTT Ratio 1.0 VBG pH (7.36-7.41) VBG pCO2 (38-50) mmHg VBG pO2 mmHg VBG HCO3 mmol/L VBG O2 Saturation % VBG Base Excess mEq/L Barometric Pressure mm/Hg Sodium (136-145) mmol/L Potassium 3.9 (3.5-5.1) mmol/L Chloride (98-107) mmol/L Carbon Dioxide (21-32) mmol/L Anion Gap (3-11) BUN (7-18) mg/dl Creatinine (0.6-1.4) mg/dl Est Cr Clr Drug Dosing ml/min Est GFR ( Amer) Est GFR (Non-Af Amer) BUN/Creatinine Ratio (10-20) Glucose (70-99) mg/dl Lactate (0.4-2.0) mmol/L Calcium (8.5-10.1) mg/dl Phosphorus (2.5-4.9) mg/dl Magnesium 1.6 L (1.8-2.4) mg/dl Total Bilirubin (0.2-1) mg/dl AST 10 L (15-37) U/L ALT (12-78) U/L Alkaline Phosphatase (45-117) U/L Troponin I (0-0.045) ng/ml Total Protein (6.4-8.2) gm/dl Albumin (3.4-5.0) gm/dl Globulin (2.5-4.0) gm/dl Albumin/Globulin Ratio (0.9-2) Procalcitonin 0.19 Urine Color Urine Appearance (Clear) Urine pH (4.5-7.5) Ur Specific [place] (1.000-1.030) Urine Protein (Negative) Urine Glucose (UA) (Negative) Urine Ketones (Negative) Urine Blood (Negative) Urine Nitrite (Negative) Urine Bilirubin (Negative) Urine Urobilinogen (Negative) Ur Leukocyte Esterase (Negative) Urine WBC (Auto) (0-5) /hpf Urine RBC (Auto) (0-4) /hpf U Hyaline Cast (Auto) (0-5) /lpf U Epithel Cells (Auto) (0-5) /lpf Urine Bacteria (Auto) (Negative) Urine Yeast 09/08/18 09/08/18 09/08/18 Range/Units 15:28 15:28 15:11 WBC (4.8-10.8) K/uL RBC (4.7-6.1) M/uL Hgb (14.0-18.0) g/dL Hct (42-52) % MCV (80-100) fL MCH (25-34) pg MCHC (32-36) g/dL RDW Std Deviation (36.4-46.3) fL RDW Coeff of [place] (11.5-14.5) % Plt Count (130-400) K/uL MPV (7.4-10.4) fL Immature Gran % (Auto) % Neut % (Auto) % Lymph % (Auto) % [place] % (Auto) % Eos % (Auto) % Baso % (Auto) % Immature Gran # (Auto) (0.00-0.02) K/uL Neut # (Auto) (1.4-6.5) K/uL Lymph # (Auto) (1.2-3.4) K/uL [place] # (Auto) (0.11-0.59) K/uL Eos # (Auto) (0-0.5) K/uL Baso # (Auto) (0-0.2) K/uL PT INR APTT PTT Ratio VBG pH 7.43 H (7.36-7.41) VBG pCO2 37 L (38-50) mmHg VBG pO2 81 mmHg VBG HCO3 24 mmol/L VBG O2 Saturation 88.0 % VBG Base Excess -0.4 mEq/L Barometric Pressure 730.0 mm/Hg Sodium (136-145) mmol/L Potassium (3.5-5.1) mmol/L Chloride (98-107) mmol/L Carbon Dioxide (21-32) mmol/L Anion Gap (3-11) BUN (7-18) mg/dl Creatinine (0.6-1.4) mg/dl Est Cr Clr Drug Dosing ml/min Est GFR ( Amer) Est GFR (Non-Af Amer) BUN/Creatinine Ratio (10-20) Glucose (70-99) mg/dl Lactate 1.2 (0.4-2.0) mmol/L Calcium (8.5-10.1) mg/dl Phosphorus (2.5-4.9) mg/dl Magnesium (1.8-2.4) mg/dl Total Bilirubin (0.2-1) mg/dl AST (15-37) U/L ALT (12-78) U/L Alkaline Phosphatase (45-117) U/L Troponin I (0-0.045) ng/ml Total Protein (6.4-8.2) gm/dl Albumin (3.4-5.0) gm/dl Globulin (2.5-4.0) gm/dl Albumin/Globulin Ratio (0.9-2) Procalcitonin Urine Color Yellow Urine Appearance Cloudy H (Clear) Urine pH 8.0 H (4.5-7.5) Ur Specific [place] 1.010 (1.000-1.030) Urine Protein 1+ H (Negative) Urine Glucose (UA) Negative (Negative) Urine Ketones Negative (Negative) Urine Blood 2+ H (Negative) Urine Nitrite Negative (Negative) Urine Bilirubin Negative (Negative) Urine Urobilinogen Negative (Negative) Ur Leukocyte Esterase 3+ H (Negative) Urine WBC (Auto) >30 H (0-5) /hpf Urine RBC (Auto) >30 H (0-4) /hpf U Hyaline Cast (Auto) 1-5 (0-5) /lpf U Epithel Cells (Auto) 0-5 (0-5) /lpf Urine Bacteria (Auto) 1+ H (Negative) Urine Yeast Not Reportable 09/08/18 09/08/18 09/08/18 Range/Units 14:40 14:40 14:40 WBC (4.8-10.8) K/uL RBC (4.7-6.1) M/uL Hgb (14.0-18.0) g/dL Hct (42-52) % MCV (80-100) fL MCH (25-34) pg MCHC (32-36) g/dL RDW Std Deviation (36.4-46.3) fL RDW Coeff of [place]ouch[place] (11.5-14.5) % Plt Count (130-400) K/uL MPV (7.4-10.4) fL Immature Gran % (Auto) % Neut % (Auto) % Lymph % (Auto) % [place] % (Auto) % Eos % (Auto) % Baso % (Auto) % Immature Gran # (Auto) (0.00-0.02) K/uL Neut # (Auto) (1.4-6.5) K/uL Lymph # (Auto) (1.2-3.4) K/uL [place] # (Auto) (0.11-0.59) K/uL Eos # (Auto) (0-0.5) K/uL Baso # (Auto) (0-0.2) K/uL PT Cancelled INR Cancelled APTT Cancelled PTT Ratio Cancelled VBG pH (7.36-7.41) VBG pCO2 (38-50) mmHg VBG pO2 mmHg VBG HCO3 mmol/L VBG O2 Saturation % VBG Base Excess mEq/L Barometric Pressure mm/Hg Sodium 138 (136-145) mmol/L Potassium (3.5-5.1) mmol/L Chloride 109 H (98-107) mmol/L Carbon Dioxide 25 (21-32) mmol/L Anion Gap 4.0 (3-11) BUN 15 (7-18) mg/dl Creatinine 1.36 (0.6-1.4) mg/dl Est Cr Clr Drug Dosing 40.2 ml/min Est GFR ( Amer) 57.0 Est GFR (Non-Af Amer) 49.1 BUN/Creatinine Ratio 10.9 (10-20) Glucose 100 H (70-99) mg/dl Lactate (0.4-2.0) mmol/L Calcium 8.7 (8.5-10.1) mg/dl Phosphorus 1.6 L (2.5-4.9) mg/dl Magnesium (1.8-2.4) mg/dl Total Bilirubin 0.3 (0.2-1) mg/dl AST (15-37) U/L ALT 18 (12-78) U/L Alkaline Phosphatase 84 (45-117) U/L Troponin I 0.105 H* (0-0.045) ng/ml Total Protein 8.9 H (6.4-8.2) gm/dl Albumin 3.2 L (3.4-5.0) gm/dl Globulin 5.7 H (2.5-4.0) gm/dl Albumin/Globulin Ratio 0.6 L (0.9-2) Procalcitonin Cancelled Urine Color Urine Appearance (Clear) Urine pH (4.5-7.5) Ur Specific [place] (1.000-1.030) Urine Protein (Negative) Urine Glucose (UA) (Negative) Urine Ketones (Negative) Urine Blood (Negative) Urine Nitrite (Negative) Urine Bilirubin (Negative) Urine Urobilinogen (Negative) Ur Leukocyte Esterase (Negative) Urine WBC (Auto) (0-5) /hpf Urine RBC (Auto) (0-4) /hpf U Hyaline Cast (Auto) (0-5) /lpf U Epithel Cells (Auto) (0-5) /lpf Urine Bacteria (Auto) (Negative) Urine Yeast 09/08/18 Range/Units 14:40 WBC 10.32 (4.8-10.8) K/uL RBC 4.18 L (4.7-6.1) M/uL Hgb 12.3 L (14.0-18.0) g/dL Hct 36.1 L (42-52) % MCV 86.4 (80-100) fL MCH 29.4 (25-34) pg MCHC 34.1 (32-36) g/dL RDW Std Deviation 45.2 (36.4-46.3) fL RDW Coeff of [place] 14.6 H (11.5-14.5) % Plt Count 220 (130-400) K/uL MPV 11.5 H (7.4-10.4) fL Immature Gran % (Auto) 0.4 % Neut % (Auto) 87.8 % Lymph % (Auto) 4.6 % [place] % (Auto) 6.8 % Eos % (Auto) 0.4 % Baso % (Auto) 0.0 % Immature Gran # (Auto) 0.04 H (0.00-0.02) K/uL Neut # (Auto) 9.07 H (1.4-6.5) K/uL Lymph # (Auto) 0.47 L (1.2-3.4) K/uL [place] # (Auto) 0.70 H (0.11-0.59) K/uL Eos # (Auto) 0.04 (0-0.5) K/uL Baso # (Auto) 0.00 (0-0.2) K/uL PT INR APTT PTT Ratio VBG pH (7.36-7.41) VBG pCO2 (38-50) mmHg VBG pO2 mmHg VBG HCO3 mmol/L VBG O2 Saturation % VBG Base Excess mEq/L Barometric Pressure mm/Hg Sodium (136-145) mmol/L Potassium (3.5-5.1) mmol/L Chloride (98-107) mmol/L Carbon Dioxide (21-32) mmol/L Anion Gap (3-11) BUN (7-18) mg/dl Creatinine (0.6-1.4) mg/dl Est Cr Clr Drug Dosing ml/min Est GFR ( Amer) Est GFR (Non-Af Amer) BUN/Creatinine Ratio (10-20) Glucose (70-99) mg/dl Lactate (0.4-2.0) mmol/L Calcium (8.5-10.1) mg/dl Phosphorus (2.5-4.9) mg/dl Magnesium (1.8-2.4) mg/dl Total Bilirubin (0.2-1) mg/dl AST (15-37) U/L ALT (12-78) U/L Alkaline Phosphatase (45-117) U/L Troponin I (0-0.045) ng/ml Total Protein (6.4-8.2) gm/dl Albumin (3.4-5.0) gm/dl Globulin (2.5-4.0) gm/dl Albumin/Globulin Ratio (0.9-2) Procalcitonin Urine Color Urine Appearance (Clear) Urine pH (4.5-7.5) Ur Specific [place] (1.000-1.030) Urine Protein (Negative) Urine Glucose (UA) (Negative) Urine Ketones (Negative) Urine Blood (Negative) Urine Nitrite (Negative) Urine Bilirubin (Negative) Urine Urobilinogen (Negative) Ur Leukocyte Esterase (Negative) Urine WBC (Auto) (0-5) /hpf Urine RBC (Auto) (0-4) /hpf U Hyaline Cast (Auto) (0-5) /lpf U Epithel Cells (Auto) (0-5) /lpf Urine Bacteria (Auto) (Negative) Urine Yeast Diagnostic Findings CT abdomen/pelvis: CT SCAN OF THE ABDOMEN AND PELVIS WITH IV CONTRAST CLINICAL HISTORY: Sepsis. Hematuria. COMPARISON STUDY: CT of the brain dated 05/15/2015. TECHNIQUE: Following the IV administration of 90 cc of Optiray 320, CT scan of the abdomen and pelvis is performed from the lung bases to the proximal femora. Images are reviewed in the axial, sagittal, and coronal planes. IV contrast was administered without complication. A dose lowering technique was utilized adhering to the principles of ALARA. The examination is degraded by motion artifact. CT DOSE: 260.05 mGy.cm FINDINGS: Lung bases: The heart is normal in size and without pericardial effusion. Advanced emphysematous change is seen at the lung bases. There is bibasilar scarring/atelectasis. No airspace consolidation or pleural effusion is identified. Calcified granulomas are seen in the left lower lobe. Liver: The contrast-enhanced liver is normal in size, contour, and attenuation. There is no intrahepatic biliary ductal dilatation. The hepatic veins and portal veins are patent. Gallbladder: Unremarkable. Spleen: Normal in size and attenuation. Pancreas: The pancreas is moderately atrophic. Adrenal glands: Unremarkable. Kidneys: The contrast enhanced kidneys demonstrate mild cortical atrophy and are without hydronephrosis. The kidneys enhance symmetrically. Numerous bilateral renal cysts measure up to 5 cm. Additional subcentimeter cortical hypodensities also likely represent cysts but are too small for definitive characterization. No enhancing cortical mass is seen. Abdominal vasculature: There is advanced atherosclerotic calcification and mild ectasia of the abdominal aorta. Bowel: There is colonic fecal retention. No bowel obstruction is seen. The appendix is not identified and reported surgically absent. Peritoneum: There is no intraperitoneal free air or abdominal ascites. Lymphadenopathy: None. Pelvic viscera: The prostate gland is enlarged and heterogeneous, measuring 5.5 cm in transverse diameter. There is median lobe hypertrophy. The bladder wall is thickened and trabeculated, indicating chronic outlet obstruction. The bladder wall appears hyperemic and there is pericystic stranding. A bladder diverticulum is seen posteriorly on the left and measures up to 1.9 cm (axial image #[id number]). Skeletal structures: The skeletal structures are osteopenic. Lumbosacral spondyl osis is observed. No lytic or blastic lesions are seen. IMPRESSION: 1. Motion degraded examination. 2. Findings are typical for cystitis. Correlation with clinical findings and urinalysis will be required. 3. Prostatomegaly with evidence of chronic bladder outlet obstruction. 4. Advanced emphysema. 5. Numerous bilateral renal cysts measure up to 5 cm. 6. Additional findings as above. Chest x-ray image personally reviewed by me and agree with the following report: XR chest 1V portable HISTORY: Sepsis COMPARISON: Chest 03/27/2017. FINDINGS: Slightly rotated study. The lungs are clear. The heart is normal in size. No pleural effusions. No pneumothorax. Suspect mild emphysema. IMPRESSION: No significant change compared to the prior study. No acute process. ECG Additional Comments: ECG with sinus tachycardia, rate 107, incomplete right bundle branch block, left anterior fascicular block-unchanged from previous Review of previous records with echocardiogram 2011 that was with normal LVEF no significant other abnormalities Code Status & VTE Plan Code Status FULL CODE VTE Prophylaxis Plan VTE Prophylaxis will be ordered: Yes (1) Sepsis Sepsis type: sepsis due to unspecified organism Qualified Code(s): A41.9 - Sepsis, unspecified organism
[2018-09-08 16:55] LABS: Potassium 3.9 mmol/L (3.5-5.1)
[2018-09-08 16:56] LABS: INR 1.1 (0.9-1.1); Partial Thromboplastin Time 26.5 Seconds (21.0-31.0); Prothrombin Time 11.2 Seconds (9.0-12.0)
[2018-09-08] MEDS ORDERED: IOVERSOL 100ml IV PRN (16:56)
[2018-09-08 17:00] LABS: Magnesium 1.6 mg/dl (1.8-2.4)
[2018-09-08] MEDS ORDERED: POTASSIUM PHOSPHATE 9 MMOL in SODIUM CHLORIDE 0.9% 250 ML IV ONE (17:00)
--- NOTE | 2018-09-08 17:09 | CT Scan Report ---
CT SCAN OF THE ABDOMEN AND PELVIS WITH IV CONTRAST CLINICAL HISTORY: Sepsis. Hematuria. COMPARISON STUDY: CT of the brain dated 05/15/2015. TECHNIQUE: Following the IV administration of 90 cc of Optiray 320, CT scan of the abdomen and pelvi s is performed from the lung bases to the proximal femora. Images are reviewed in the axial, sagittal , and coronal planes. IV contrast was administered without complication. A dose lowering technique wa s utilized adhering to the principles of ALARA. The examination is degraded by motion artifact. CT DOSE: 260.05 mGy.cm FINDINGS: Lung bases: The heart is normal in size and without pericardial effusion. Advanced emphysematous suárez ge is seen at the lung bases. There is bibasilar scarring/atelectasis. No airspace consolidation or p leural effusion is identified. Calcified granulomas are seen in the left lower lobe. Liver: The contrast-enhanced liver is normal in size, contour, and attenuation. There is no intrahepa tic biliary ductal dilatation. The hepatic veins and portal veins are patent. Gallbladder: Unremarkable. Spleen: Normal in size and attenuation. Pancreas: The pancreas is moderately atrophic. Adrenal glands: Unremarkable. Kidneys: The contrast enhanced kidneys demonstrate mild cortical atrophy and are without hydronephros is. The kidneys enhance symmetrically. Numerous bilateral renal cysts measure up to 5 cm. Additional subcentimeter cortical hypodensities also likely represent cysts but are too small for definitive pippa racterization. No enhancing cortical mass is seen. Abdominal vasculature: There is advanced atherosclerotic calcification and mild ectasia of the abdomi nal aorta. Bowel: There is colonic fecal retention. No bowel obstruction is seen. The appendix is not identifie d and reported surgically absent. Peritoneum: There is no intraperitoneal free air or abdominal ascites. Lymphadenopathy: None. Pelvic viscera: The prostate gland is enlarged and heterogeneous, measuring 5.5 cm in transverse diam eter. There is median lobe hypertrophy. The bladder wall is thickened and trabeculated, indicating ch ronic outlet obstruction. The bladder wall appears hyperemic and there is pericystic stranding. A keturah dder diverticulum is seen posteriorly on the left and measures up to 1.9 cm (axial image #[id number]). Skeletal structures: The skeletal structures are osteopenic. Lumbosacral spondylosis is observed. No lytic or blastic lesions are seen. IMPRESSION: 1. Motion degraded examination. 2. Findings are typical for cystitis. Correlation with clinical findings and urinalysis will be requi red. 3. Prostatomegaly with evidence of chronic bladder outlet obstruction. 4. Advanced emphysema. 5. Numerous bilateral renal cysts measure up to 5 cm. 6. Additional findings as above. Electronically signed by: Panfilo Huerta M.D. 09/08/2018 5:08 PM
[2018-09-08] MEDS ORDERED: ALUMINUM/MAGNESIUM SUSP 30 ML UDC PO PRN (18:47)
[2018-09-08] MEDS ORDERED: ONDANSETRON INJ 2 MG/ML 2 ML VIAL IV PRN (18:47)
[2018-09-08] MEDS ORDERED: POLYETHYLENE (MIRALAX) 17 GM PACK PO PRN (18:47)
[2018-09-08] MEDS ORDERED: MAGNESIUM HYDROXIDE SUSP 30 ML UDC PO PRN (18:47)
[2018-09-08] MEDS ORDERED: ACETAMINOPHEN 325 MG TAB PO PRN (18:47)
[2018-09-08] MEDS ORDERED: PIPERACILL/TAZOBAC CONSULT ACTIVE PRN (18:47)
[2018-09-08 19:55] LABS: Influenza A virus by PCR Neg for Influ A (Neg); Influenza B virus by PCR Neg for Influ B (Neg)
[2018-09-08] MEDS: MAGNESIUM SULFATE / D5W 1 GM/100 ML BAG IV SCH ×2 (20:00→22:00)
[2018-09-08] MEDS: SODIUM CHLORIDE 0.9% 1000ML 1,000 ML IV SCH (22:01)
[2018-09-08] MEDS: TAMSULOSIN HCL 0.4 MG CAP PO SCH (22:02)
[2018-09-08] MEDS: FINASTERIDE 5 MG TAB PO SCH (22:02)
[2018-09-08] MEDS: BRIMONIDINE TARTRATE 0.2% 5ML OP SCH (22:03)
[2018-09-08] MEDS: TIMOLOL MALEATE 0.5% OP SOLN 5 ML BTL OPB SCH (22:03)
[2018-09-08] MEDS: prednisoLONE acetate 1% OP SUSP 5 ML BTL OPR SCH (22:03)
[2018-09-08] MEDS: PILOCARPINE HCL 1% OP SOLN 15 ML BTL OPB SCH (22:04)
[2018-09-08] MEDS: DORZOLAMIDE HCL 2% OPH SOLN 10 ML BTL OPB SCH (22:04)
[2018-09-08] MEDS: PIPERACILLIN/TAZOBACTAM 3.375 GM in DEXTROSE 5% 100 ML IV SCH (22:28)
--- NOTE | 2018-09-09 01:20 | Emergency Department Note ---
Entered by Amador Washington acting as a scribe for Campbell Ortega MD History of Present Illness General Chief complaint: Illness Time Seen by Provider: 09/08/18 14:50 Source: patient Limitations: no limitations History of Present Illness Provider complaint: Urinary Issues Onset (ago): day(s) Location: genitals Pain Consistency: + constant Maximum Pain Intensity: 7 Quality: + other (Urinary irregularities) Associated symptoms: + fever/chills; no headaches and no nausea/vomiting The patient is a 77 year old male who presents to the Emergency Room with c omplaints of constant urinary irregularities for the past couple of days. The patient is an inmate at [facility] and was referred to the ED today after having a fever of 102.7 in their infirmary and a further urinalysis revealed infection. The patient states that he needed to have a straight-cath performed to yield the urine for the urinalysis today. He is complaining of fevers and chills, but denies any nausea, vomiting, diarrhea, headache, or dizziness. He does not have an indwelling Contreras placed. The patient is a current every day smoker, but he denies any history of COPD. Home Medications Home Medications Medication Instructions Recorded Confirmed Type amlodipine 5 mg PO DAILY 09/08/18 09/08/18 History aspirin 81 mg PO DAILY 09/08/18 09/08/18 History brimonidine 1 drp OPHTHALMIC (EYE) BID 09/08/18 09/08/18 History dorzolamide 1 drp OPB BID 09/08/18 09/08/18 History enalapril maleate 10 mg PO DAILY 09/08/18 09/08/18 History finasteride 5 mg PO QPM 09/08/18 09/08/18 History latanoprost 1 drp OPB DAILY 09/08/18 09/08/18 History omeprazole 20 mg PO DAILY 09/08/18 09/08/18 History pilocarpine HCl 1 drp OPB QID 09/08/18 09/08/18 History prednisolone acetate 1 drp OPR QID 09/08/18 09/08/18 History primidone 100 mg PO DAILY 09/08/18 09/08/18 History tamsulosin 0.8 mg PO HS 09/08/18 09/08/18 History timolol 1 drp OPB BID 09/08/18 09/08/18 History Allergies Allergy/AdvReac Type Severity Reaction Status Date / Time Bactrim Allergy Unknown . Verified 10/07/17 06:20 Past Med/Surg History Medical History Chest pain (Acute) Shortness of breath (Acute) Depression GERD (gastroesophageal reflux disease) Glaucoma HTN (hypertension), benign History of non-ST elevation myocardial infarction (NSTEMI) History of prostate cancer Tremor Surgical History History of appendectomy History of prostate surgery Family History Other Family history non-contributory Social History Communication Ability: Effective [place] Worker Required: No Beliefs That Will Affect Care: None Current Living Situation: Other Current Living Situation Comment: correctional facility current occupation: incarcerated for at least 25 years; previously was an health information management director Other Information That Helps Us Care for You: No Feels Safe at Home: Yes Smoking Status: Current every day smoker Hx Alcohol Use: No Hx Substance Use: No Review of Systems See HPI for pertinent positives & negatives. and A total of 10 systems reviewed and were otherwise negative Physical Exam Vital Signs Vital Signs - 24 hr 09/08/18 14:30 09/08/18 14:34 09/08/18 14:40 Temperature 37.3 C Temperature Source Oral Sepsis Recent Fever Within 48 Hours Yes Sepsis New/Unexplained Change in Mental Status No Sepsis Action Taken by Nursing No Action Required Pulse Rate 111 H 126 H 108 H Pulse Rate [Left Radial] Pulse Rate from SpO2 Sensor 111 H 126 H 109 H Pulse Rhythm Regular Pulse Rhythm [Left Radial] Pulse Strength Normal Pulse Strength [Left Radial] Respiratory Rate 29 H 29 H 25 H Respiratory Effort / Characteristics Non-Labored Respiratory Depth Normal Respiratory Pattern Regular Blood Pressure 172/95 H 157/98 H Blood Pressure [Left Arm] Blood Pressure Mean 120 117 Blood Pressure Mean [Left Arm] Blood Pressure Position Lying Blood Pressure Position [Left Arm] Pulse Oximetry 94 93 96 Oxygen Delivery Method Room Air 09/08/18 14:50 09/08/18 15:00 09/08/18 15:01 Temperature Temperature Source Sepsis Recent Fever Within 48 Hours Sepsis New/Unexplained Change in Mental Status Sepsis Action Taken by Nursing Pulse Rate 101 H 105 H 109 H Pulse Rate [Left Radial] Pulse Rate from SpO2 Sensor 105 H 105 H 109 H Pulse Rhythm Pulse Rhythm [Left Radial] Pulse Strength Pulse Strength [Left Radial] Respiratory Rate 27 H 28 H 22 Respiratory Effort / Characteristics Respiratory Depth Respiratory Pattern Blood Pressure 143/91 H Blood Pressure [Left Arm] Blood Pressure Mean 108 Blood Pressure Mean [Left Arm] Blood Pressure Position Blood Pressure Position [Left Arm] Pulse Oximetry 92 96 96 Oxygen Delivery Method 09/08/18 15:10 09/08/18 15:20 09/08/18 15:30 Temperature Temperature Source Sepsis Recent Fever Within 48 Hours Sepsis New/Unexplained Change in Mental Status Sepsis Action Taken by Nursing Pulse Rate 105 H 103 H 100 H Pulse Rate [Left Radial] Pulse Rate from SpO2 Sensor 105 H 103 H 100 H Pulse Rhythm Pulse Rhythm [Left Radial] Pulse Strength Pulse Strength [Left Radial] Respiratory Rate 28 H 33 H 32 H Respiratory Effort / Characteristics Respiratory Depth Respiratory Pattern Blood Pressure 126/81 Blood Pressure [Left Arm] Blood Pressure Mean 96 Blood Pressure Mean [Left Arm] Blood Pressure Position Blood Pressure Position [Left Arm] Pulse Oximetry 96 95 94 Oxygen Delivery Method 09/08/18 15:31 09/08/18 15:40 09/08/18 15:50 Temperature Temperature Source Sepsis Recent Fever Within 48 Hours Sepsis New/Unexplained Change in Mental Status Sepsis Action Taken by Nursing Pulse Rate 99 H 101 H 109 H Pulse Rate [Left Radial] Pulse Rate from SpO2 Sensor 99 H 100 H 109 H Pulse Rhythm Pulse Rhythm [Left Radial] Pulse Strength Pulse Strength [Left Radial] Respiratory Rate 31 H 28 H 25 H Respiratory Effort / Characteristics Respiratory Depth Respiratory Pattern Blood Pressure Blood Pressure [Left Arm] Blood Pressure Mean Blood Pressure Mean [Left Arm] Blood Pressure Position Blood Pressure Position [Left Arm] Pulse Oximetry 95 95 96 Oxygen Delivery Method 09/08/18 16:00 09/08/18 16:01 09/08/18 16:10 Temperature Temperature Source Sepsis Recent Fever Within 48 Hours Sepsis New/Unexplained Change in Mental Status Sepsis Action Taken by Nursing Pulse Rate 94 H 94 H 105 H Pulse Rate [Left Radial] Pulse Rate from SpO2 Sensor 94 H 95 H 99 H Pulse Rhythm Pulse Rhythm [Left Radial] Pulse Strength Pulse Strength [Left Radial] Respiratory Rate 29 H 29 H 27 H Respiratory Effort / Characteristics Respiratory Depth Respiratory Pattern Blood Pressure 106/64 Blood Pressure [Left Arm] Blood Pressure Mean 78 Blood Pressure Mean [Left Arm] Blood Pressure Position Blood Pressure Position [Left Arm] Pulse Oximetry 93 94 94 Oxygen Delivery Method 09/08/18 18:45 09/08/18 18:47 09/08/18 23:06 Temperature 36.4 C L 37.9 C H Temperature Source Oral Sepsis Recent Fever Within 48 Hours Sepsis New/Unexplained Change in Mental Status Sepsis Action Taken by Nursing Pulse Rate 99 H 64 Pulse Rate [Left Radial] 86 Pulse Rate from SpO2 Sensor Pulse Rhythm Pulse Rhythm [Left Radial] Regular Pulse Strength Pulse Strength [Left Radial] Normal Respiratory Rate 18 18 Respiratory Effort / Characteristics Non-Labored Respiratory Depth Normal Respiratory Pattern Regular Blood Pressure 144/79 H Blood Pressure [Left Arm] 171/96 H Blood Pressure Mean Blood Pressure Mean [Left Arm] 121 Blood Pressure Position Blood Pressure Position [Left Arm] Lying Pulse Oximetry 94 95 Oxygen Delivery Method Room Air GENERAL: Awake, alert, fatigued-appearing, in no distress HENT: Normocephalic, atraumatic. Oropharynx with dry mucous membranes and otherwise unremarkable. EYES: Normal conjunctiva. Sclera non-icteric. NECK: Supple. No nuchal rigidity. FROM. No JVD. RESPIRATORY: Breath sounds diminished throughout. CARDIAC: Regular rate, normal rhythm. Extremities warm and well perfused. Pulses equal. ABDOMEN: Soft, non-distended. No tenderness to palpation. No rebound or guarding. No masses. RECTAL: Deferred. MUSCULOSKELETAL: Chest examination reveals no tenderness. The back is symmetrical on inspection without obvious abnormality. There is no CVA tenderness to palpation. No joint edema. LOWER EXTREMITIES: Calves are equal size bilaterally and non-tender. No edema. No discoloration. NEURO: Normal sensorium. No sensory or motor deficits noted. SKIN: No rash or jaundice noted. : Dried blood present at the urethral meatus. No epididymal or testicular tenderness, erythema, or warmth. Course 1453: Past medical records reviewed. The patient was evaluated in room C9, and a complete history and physical examination were performed. 1631: I reviewed the patient's case with Dr. Aye Henderson - [facility] [place] . He will evaluate the patient for further management. Administered Medications Acetaminophen (Tylenol) 650 mg PO Q4H PRN PRN Reason: Pain or Fever Stop: 10/08/18 18:46 Last Admin: 09/09/18 00:41 Dose: 650 mg Documented by: [id number] Brimonidine Tartrate (Alphagan 0.2%) 1 drops OP BID [facility]ULEIMA Stop: 10/08/18 20:59 Last Admin: 09/08/18 22:03 Dose: 1 drops Documented by: [id number] Dorzolamide HCl (Trusopt 2% Oph) 1 drops OPB BID [facility] Stop: 10/08/18 20:59 Last Admin: 09/08/18 22:04 Dose: 1 drops Documented by: [id number] Finasteride (Proscar) 5 mg PO QPM ZULEIMA Stop: 10/08/18 20:59 Last Admin: 09/08/18 22:02 Dose: 5 mg Documented by: [id number] Sodium Chloride (Nss 1000ml) 1,000 mls @ 125 mls/hr IV .Q8H [facility] Stop: 10/08/18 18:46 Last Admin: 09/08/18 22:01 Dose: 125 mls/hr Documented by: [id number] Piperacillin Sod/Tazobactam (Sod 3.375 gm/ Dextrose) 115 mls @ 28.75 mls/hr IV Q8H [facility] Stop: 09/18/18 19:59 Last Admin: 09/08/18 22:28 Dose: 28.8 mls/hr Documented by: [id number] Pilocarpine HCl (Isopto Carpine 1% Opn Soln) 1 drops OPB QID [facility]ULEIMA Stop: 10/08/18 20:59 Last Admin: 09/08/18 22:04 Dose: 1 drops Documented by: [id number] Prednisolone Acetate (Pred Forte 1%) 1 drops OPR QID ZULEIMA Stop: 10/08/18 20:59 Last Admin: 09/08/18 22:03 Dose: 1 drops Documented by: [id number] Tamsulosin HCl (Flomax) 0.8 mg PO HS [facility] Stop: 10/08/18 20:59 Last Admin: 09/08/18 22:02 Dose: 0.8 mg Documented by: [id number] Timolol Maleate (Timoptic 0.5% Oph) 1 drops OPB BID ZULEIMA Stop: 10/08/18 20:59 Last Admin: 09/08/18 22:03 Dose: 1 drops Documented by: [id number] Discontinued Medications Sodium Chloride (Nss 1000ml) 2,000 mls @ 999 mls/hr IV .Q2H1M ONE Stop: 09/08/18 17:01 Last Infusion: 09/08/18 19:25 Dose: 0 mls/hr Documented by: [id number] Admin: 09/08/18 15:45 Dose: 999 mls/hr Documented by: [id number] Piperacillin Sod/Tazobactam Sod (Zosyn) 4.5 gm in 120 mls @ 30 mls/hr IV NOW ONE Stop: 09/08/18 19:01 Last Infusion: 09/08/18 19:41 Dose: 0 mls/hr Documented by: [id number] Admin: 09/08/18 15:45 Dose: 30 mls/hr Documented by: [id number] Vancomycin HCl 1,250 mg/ (Sodium Chloride) 525 mls @ 200 mls/hr IV NOW ONE Stop: 09/08/18 17:39 Last Infusion: 09/08/18 19:35 Dose: 0 mls/hr Documented by: [id number] Admin: 09/08/18 15:45 Dose: 200 mls/hr Documented by: [id number] Potassium Phosphate 9 mmol/ (Sodium Chloride) 253 mls @ 88 mls/hr IV 1700 ONE Stop: 09/08/18 19:52 Last Infusion: 09/08/18 22:31 Dose: 0 mls/hr Documented by: [id number] Admin: 09/08/18 20:00 Dose: 88 mls/hr Documented by: [id number] Magnesium Sulfate/Dextrose (Magnesium Sulfate / D5w) 1 gm in 100 mls @ 100 mls/hr IV Q1H [facility]ULEIMA Stop: 09/08/18 20:46 Last Infusion: 09/08/18 22:31 Dose: 0 mls/hr Documented by: [id number] Admin: 09/08/18 22:00 Dose: 100 mls/hr Documented by: [id number] Infusion: 09/08/18 21:00 Dose: 100 mls/hr Documented by: [id number] Admin: 09/08/18 20:00 Dose: 100 mls/hr Documented by: [id number] Ioversol (Optiray 320 100ml) 90 ml IV ONCE PRN PRN Reason: Interaction Checking Stop: 09/12/18 16:55 Last Admin: 09/08/18 16:56 Dose: 90 ml Documented by: [id number] Potassium Phosphate (Potassium Phosphate Replace) 9 mmol IV NOW STA Stop: 09/08/18 16:15 Last Admin: 09/08/18 17:51 Dose: 9 mmol Documented by: [id number] Medical Decision Making Differential Diagnosis Differential diagnosis: Etiologies such as viral syndrome, otitis, pharyngitis, pneumonia, influenza, meningitis, urinary tract infection, septic arthritis, soft tissue infectious process, intra-abdominal process, sepsis, bacteremia, as well as others were entertained. Medical Records Attestation: I reviewed the patient's medical records. Home Medications Current Medication List: was personally reviewed by me Laboratory Data Attestation: I reviewed the patient's lab results. Result diagrams: 09/08/18 14:40 09/08/18 16:15 Lab Results 09/08/18 09/08/18 09/08/18 Range/Units 14:40 14:40 14:40 WBC 10.32 (4.8-10.8) K/uL RBC 4.18 L (4.7-6.1) M/uL Hgb 12.3 L (14.0-18.0) g/dL Hct 36.1 L (42-52) % MCV 86.4 (80-100) fL MCH 29.4 (25-34) pg MCHC 34.1 (32-36) g/dL RDW Std Deviation 45.2 (36.4-46.3) fL RDW Coeff of Bouchra 14.6 H (11.5-14.5) % Plt Count 220 (130-400) K/uL MPV 11.5 H (7.4-10.4) fL Immature Gran % (Auto) 0.4 % Neut % (Auto) 87.8 % Lymph % (Auto) 4.6 % [place] % (Auto) 6.8 % Eos % (Auto) 0.4 % Baso % (Auto) 0.0 % Immature Gran # (Auto) 0.04 H (0.00-0.02) K/uL Neut # (Auto) 9.07 H (1.4-6.5) K/uL Lymph # (Auto) 0.47 L (1.2-3.4) K/uL [place] # (Auto) 0.70 H (0.11-0.59) K/uL Eos # (Auto) 0.04 (0-0.5) K/uL Baso # (Auto) 0.00 (0-0.2) K/uL PT Cancelled INR Cancelled APTT Cancelled PTT Ratio Cancelled VBG pH (7.36-7.41) VBG pCO2 (38-50) mmHg VBG pO2 mmHg VBG HCO3 mmol/L VBG O2 Saturation % VBG Base Excess mEq/L Barometric Pressure mm/Hg Sodium 138 (136-145) mmol/L Potassium (3.5-5.1) mmol/L Chloride 109 H (98-107) mmol/L Carbon Dioxide 25 (21-32) mmol/L Anion Gap 4.0 (3-11) BUN 15 (7-18) mg/dl Creatinine 1.36 (0.6-1.4) mg/dl Est Cr Clr Drug Dosing 40.2 ml/min Est GFR ( Amer) 57.0 Est GFR (Non-Af Amer) 49.1 BUN/Creatinine Ratio 10.9 (10-20) Glucose 100 H (70-99) mg/dl Lactate (0.4-2.0) mmol/L Calcium 8.7 (8.5-10.1) mg/dl Phosphorus 1.6 L (2.5-4.9) mg/dl Magnesium (1.8-2.4) mg/dl Total Bilirubin 0.3 (0.2-1) mg/dl AST (15-37) U/L ALT 18 (12-78) U/L Alkaline Phosphatase 84 (45-117) U/L Troponin I 0.105 H* (0-0.045) ng/ml Total Protein 8.9 H (6.4-8.2) gm/dl Albumin 3.2 L (3.4-5.0) gm/dl Globulin 5.7 H (2.5-4.0) gm/dl Albumin/Globulin Ratio 0.6 L (0.9-2) Procalcitonin Urine Color Urine Appearance (Clear) Urine pH (4.5-7.5) Ur Specific [place] (1.000-1.030) Urine Protein (Negative) Urine Glucose (UA) (Negative) Urine Ketones (Negative) Urine Blood (Negative) Urine Nitrite (Negative) Urine Bilirubin (Negative) Urine Urobilinogen (Negative) Ur Leukocyte Esterase (Negative) Urine WBC (Auto) (0-5) /hpf Urine RBC (Auto) (0-4) /hpf U Hyaline Cast (Auto) (0-5) /lpf U Epithel Cells (Auto) (0-5) /lpf Urine Bacteria (Auto) (Negative) Urine Yeast Nasal Screen MRSA (PCR) (Negative) Influenza Type A (PCR) (Neg) Influenza Type B (PCR) (Neg) 09/08/18 09/08/18 09/08/18 Range/Units 14:40 15:11 15:28 WBC (4.8-10.8) K/uL RBC (4.7-6.1) M/uL Hgb (14.0-18.0) g/dL Hct (42-52) % MCV (80-100) fL MCH (25-34) pg MCHC (32-36) g/dL RDW Std Deviation (36.4-46.3) fL RDW Coeff of Bouchra (11.5-14.5) % Plt Count (130-400) K/uL MPV (7.4-10.4) fL Immature Gran % (Auto) % Neut % (Auto) % Lymph % (Auto) % [place] % (Auto) % Eos % (Auto) % Baso % (Auto) % Immature Gran # (Auto) (0.00-0.02) K/uL Neut # (Auto) (1.4-6.5) K/uL Lymph # (Auto) (1.2-3.4) K/uL [place] # (Auto) (0.11-0.59) K/uL Eos # (Auto) (0-0.5) K/uL Baso # (Auto) (0-0.2) K/uL PT INR APTT PTT Ratio VBG pH (7.36-7.41) VBG pCO2 (38-50) mmHg VBG pO2 mmHg VBG HCO3 mmol/L VBG O2 Saturation % VBG Base Excess mEq/L Barometric Pressure mm/Hg Sodium (136-145) mmol/L Potassium (3.5-5.1) mmol/L Chloride (98-107) mmol/L Carbon Dioxide (21-32) mmol/L Anion Gap (3-11) BUN (7-18) mg/dl Creatinine (0.6-1.4) mg/dl Est Cr Clr Drug Dosing ml/min Est GFR ( Amer) Est GFR (Non-Af Amer) BUN/Creatinine Ratio (10-20) Glucose (70-99) mg/dl Lactate 1.2 (0.4-2.0) mmol/L Calcium (8.5-10.1) mg/dl Phosphorus (2.5-4.9) mg/dl Magnesium (1.8-2.4) mg/dl Total Bilirubin (0.2-1) mg/dl AST (15-37) U/L ALT (12-78) U/L Alkaline Phosphatase (45-117) U/L Troponin I (0-0.045) ng/ml Total Protein (6.4-8.2) gm/dl Albumin (3.4-5.0) gm/dl Globulin (2.5-4.0) gm/dl Albumin/Globulin Ratio (0.9-2) Procalcitonin Cancelled Urine Color Yellow Urine Appearance Cloudy H (Clear) Urine pH 8.0 H (4.5-7.5) Ur Specific [place] 1.010 (1.000-1.030) Urine Protein 1+ H (Negative) Urine Glucose (UA) Negative (Negative) Urine Ketones Negative (Negative) Urine Blood 2+ H (Negative) Urine Nitrite Negative (Negative) Urine Bilirubin Negative (Negative) Urine Urobilinogen Negative (Negative) Ur Leukocyte Esterase 3+ H (Negative) Urine WBC (Auto) >30 H (0-5) /hpf Urine RBC (Auto) >30 H (0-4) /hpf U Hyaline Cast (Auto) 1-5 (0-5) /lpf U Epithel Cells (Auto) 0-5 (0-5) /lpf Urine Bacteria (Auto) 1+ H (Negative) Urine Yeast Not Reportable Nasal Screen MRSA (PCR) (Negative) Influenza Type A (PCR) (Neg) Influenza Type B (PCR) (Neg) 09/08/18 09/08/18 09/08/18 Range/Units 15:28 16:15 16:15 WBC (4.8-10.8) K/uL RBC (4.7-6.1) M/uL Hgb (14.0-18.0) g/dL Hct (42-52) % MCV (80-100) fL MCH (25-34) pg MCHC (32-36) g/dL RDW Std Deviation (36.4-46.3) fL RDW Coeff of Bouchra (11.5-14.5) % Plt Count (130-400) K/uL MPV (7.4-10.4) fL Immature Gran % (Auto) % Neut % (Auto) % Lymph % (Auto) % [place] % (Auto) % Eos % (Auto) % Baso % (Auto) % Immature Gran # (Auto) (0.00-0.02) K/uL Neut # (Auto) (1.4-6.5) K/uL Lymph # (Auto) (1.2-3.4) K/uL [place] # (Auto) (0.11-0.59) K/uL Eos # (Auto) (0-0.5) K/uL Baso # (Auto) (0-0.2) K/uL PT 11.2 INR 1.1 APTT 26.5 PTT Ratio 1.0 VBG pH 7.43 H (7.36-7.41) VBG pCO2 37 L (38-50) mmHg VBG pO2 81 mmHg VBG HCO3 24 mmol/L VBG O2 Saturation 88.0 % VBG Base Excess -0.4 mEq/L Barometric Pressure 730.0 mm/Hg Sodium (136-145) mmol/L Potassium 3.9 (3.5-5.1) mmol/L Chloride (98-107) mmol/L Carbon Dioxide (21-32) mmol/L Anion Gap (3-11) BUN (7-18) mg/dl Creatinine (0.6-1.4) mg/dl Est Cr Clr Drug Dosing ml/min Est GFR ( Amer) Est GFR (Non-Af Amer) BUN/Creatinine Ratio (10-20) Glucose (70-99) mg/dl Lactate (0.4-2.0) mmol/L Calcium (8.5-10.1) mg/dl Phosphorus (2.5-4.9) mg/dl Magnesium 1.6 L (1.8-2.4) mg/dl Total Bilirubin (0.2-1) mg/dl AST 10 L (15-37) U/L ALT (12-78) U/L Alkaline Phosphatase (45-117) U/L Troponin I (0-0.045) ng/ml Total Protein (6.4-8.2) gm/dl Albumin (3.4-5.0) gm/dl Globulin (2.5-4.0) gm/dl Albumin/Globulin Ratio (0.9-2) Procalcitonin Urine Color Urine Appearance (Clear) Urine pH (4.5-7.5) Ur Specific [place] (1.000-1.030) Urine Protein (Negative) Urine Glucose (UA) (Negative) Urine Ketones (Negative) Urine Blood (Negative) Urine Nitrite (Negative) Urine Bilirubin (Negative) Urine Urobilinogen (Negative) Ur Leukocyte Esterase (Negative) Urine WBC (Auto) (0-5) /hpf Urine RBC (Auto) (0-4) /hpf U Hyaline Cast (Auto) (0-5) /lpf U Epithel Cells (Auto) (0-5) /lpf Urine Bacteria (Auto) (Negative) Urine Yeast Nasal Screen MRSA (PCR) (Negative) Influenza Type A (PCR) (Neg) Influenza Type B (PCR) (Neg) 09/08/18 09/08/18 09/08/18 Range/Units 17:36 19:15 19:15 WBC (4.8-10.8) K/uL RBC (4.7-6.1) M/uL Hgb (14.0-18.0) g/dL Hct (42-52) % MCV (80-100) fL MCH (25-34) pg MCHC (32-36) g/dL RDW Std Deviation (36.4-46.3) fL RDW Coeff of Bouchra (11.5-14.5) % Plt Count (130-400) K/uL MPV (7.4-10.4) fL Immature Gran % (Auto) % Neut % (Auto) % Lymph % (Auto) % [place] % (Auto) % Eos % (Auto) % Baso % (Auto) % Immature Gran # (Auto) (0.00-0.02) K/uL Neut # (Auto) (1.4-6.5) K/uL Lymph # (Auto) (1.2-3.4) K/uL [place] # (Auto) (0.11-0.59) K/uL Eos # (Auto) (0-0.5) K/uL Baso # (Auto) (0-0.2) K/uL PT INR APTT PTT Ratio VBG pH (7.36-7.41) VBG pCO2 (38-50) mmHg VBG pO2 mmHg VBG HCO3 mmol/L VBG O2 Saturation % VBG Base Excess mEq/L Barometric Pressure mm/Hg Sodium (136-145) mmol/L Potassium (3.5-5.1) mmol/L Chloride (98-107) mmol/L Carbon Dioxide (21-32) mmol/L Anion Gap (3-11) BUN (7-18) mg/dl Creatinine (0.6-1.4) mg/dl Est Cr Clr Drug Dosing ml/min Est GFR ( Amer) Est GFR (Non-Af Amer) BUN/Creatinine Ratio (10-20) Glucose (70-99) mg/dl Lactate (0.4-2.0) mmol/L Calcium (8.5-10.1) mg/dl Phosphorus (2.5-4.9) mg/dl Magnesium (1.8-2.4) mg/dl Total Bilirubin (0.2-1) mg/dl AST (15-37) U/L ALT (12-78) U/L Alkaline Phosphatase (45-117) U/L Troponin I (0-0.045) ng/ml Total Protein (6.4-8.2) gm/dl Albumin (3.4-5.0) gm/dl Globulin (2.5-4.0) gm/dl Albumin/Globulin Ratio (0.9-2) Procalcitonin 0.19 Urine Color Urine Appearance (Clear) Urine pH (4.5-7.5) Ur Specific [place] (1.000-1.030) Urine Protein (Negative) Urine Glucose (UA) (Negative) Urine Ketones (Negative) Urine Blood (Negative) Urine Nitrite (Negative) Urine Bilirubin (Negative) Urine Urobilinogen (Negative) Ur Leukocyte Esterase (Negative) Urine WBC (Auto) (0-5) /hpf Urine RBC (Auto) (0-4) /hpf U Hyaline Cast (Auto) (0-5) /lpf U Epithel Cells (Auto) (0-5) /lpf Urine Bacteria (Auto) (Negative) Urine Yeast Nasal Screen MRSA (PCR) Negative (Negative) Influenza Type A (PCR) Neg for Influ A (Neg) Influenza Type B (PCR) Neg for Influ B (Neg) 09/08/18 Range/Units 20:41 WBC (4.8-10.8) K/uL RBC (4.7-6.1) M/uL Hgb (14.0-18.0) g/dL Hct (42-52) % MCV (80-100) fL MCH (25-34) pg MCHC (32-36) g/dL RDW Std Deviation (36.4-46.3) fL RDW Coeff of Bouchra (11.5-14.5) % Plt Count (130-400) K/uL MPV (7.4-10.4) fL Immature Gran % (Auto) % Neut % (Auto) % Lymph % (Auto) % [place] % (Auto) % Eos % (Auto) % Baso % (Auto) % Immature Gran # (Auto) (0.00-0.02) K/uL Neut # (Auto) (1.4-6.5) K/uL Lymph # (Auto) (1.2-3.4) K/uL [place] # (Auto) (0.11-0.59) K/uL Eos # (Auto) (0-0.5) K/uL Baso # (Auto) (0-0.2) K/uL PT INR APTT PTT Ratio VBG pH (7.36-7.41) VBG pCO2 (38-50) mmHg VBG pO2 mmHg VBG HCO3 mmol/L VBG O2 Saturation % VBG Base Excess mEq/L Barometric Pressure mm/Hg Sodium (136-145) mmol/L Potassium (3.5-5.1) mmol/L Chloride (98-107) mmol/L Carbon Dioxide (21-32) mmol/L Anion Gap (3-11) BUN (7-18) mg/dl Creatinine (0.6-1.4) mg/dl Est Cr Clr Drug Dosing ml/min Est GFR ( Amer) Est GFR (Non-Af Amer) BUN/Creatinine Ratio (10-20) Glucose (70-99) mg/dl Lactate (0.4-2.0) mmol/L Calcium (8.5-10.1) mg/dl Phosphorus (2.5-4.9) mg/dl Magnesium (1.8-2.4) mg/dl Total Bilirubin (0.2-1) mg/dl AST (15-37) U/L ALT (12-78) U/L Alkaline Phosphatase (45-117) U/L Troponin I 0.196 H* (0-0.045) ng/ml Total Protein (6.4-8.2) gm/dl Albumin (3.4-5.0) gm/dl Globulin (2.5-4.0) gm/dl Albumin/Globulin Ratio (0.9-2) Procalcitonin Urine Color Urine Appearance (Clear) Urine pH (4.5-7.5) Ur Specific [place] (1.000-1.030) Urine Protein (Negative) Urine Glucose (UA) (Negative) Urine Ketones (Negative) Urine Blood (Negative) Urine Nitrite (Negative) Urine Bilirubin (Negative) Urine Urobilinogen (Negative) Ur Leukocyte Esterase (Negative) Urine WBC (Auto) (0-5) /hpf Urine RBC (Auto) (0-4) /hpf U Hyaline Cast (Auto) (0-5) /lpf U Epithel Cells (Auto) (0-5) /lpf Urine Bacteria (Auto) (Negative) Urine Yeast Nasal Screen MRSA (PCR) (Negative) Influenza Type A (PCR) (Neg) Influenza Type B (PCR) (Neg) Imaging Data Attestation: I personally reviewed and interpreted this imaging study as follows: Radiologist's Impression: CT SCAN OF THE ABDOMEN AND PELVIS WITH IV CONTRAST CLINICAL HISTORY: Sepsis. Hematuria. COMPARISON STUDY: CT of the brain dated 05/15/2015. TECHNIQUE: Following the IV administration of 90 cc of Optiray 320, CT scan of the abdomen and pelvis is performed from the lung bases to the proximal femora. Images are reviewed in the axial, sagittal, and coronal planes. IV contrast was administered without complication. A dose lowering technique was utilized adhering to the principles of ALARA. The examination is degraded by motion artifact. CT DOSE: 260.05 mGy.cm FINDINGS: Lung bases: The heart is normal in size and without pericardial effusion. Advanced emphysematous change is seen at the lung bases. There is bibasilar scarring/atelectasis. No airspace consolidation or pleural effusion is identified. Calcified granulomas are seen in the left lower lobe. Liver: The contrast-enhanced liver is normal in size, contour, and attenuation. There is no intrahepatic biliary ductal dilatation. The hepatic veins and portal veins are patent. Gallbladder: Unremarkable. Spleen: Normal in size and attenuation. Pancreas: The pancreas is moderately atrophic. Adrenal glands: Unremarkable. Kidneys: The contrast enhanced kidneys demonstrate mild cortical atrophy and are without hydronephrosis. The kidneys enhance symmetrically. Numerous bilateral renal cysts measure up to 5 cm. Additional subcentimeter cortical hypodensities also likely represent cysts but are too small for definitive characterization. No enhancing cortical mass is seen. Abdominal vasculature: There is advanced atherosclerotic calcification and mild ectasia of the abdominal aorta. Bowel: There is colonic fecal retention. No bowel obstruction is seen. The appendix is not identified and reported surgically absent. Peritoneum: There is no intraperitoneal free air or abdominal ascites. Lymphadenopathy: None. Pelvic viscera: The prostate gland is enlarged and heterogeneous, measuring 5.5 cm in transverse diameter. There is median lobe hypertrophy. The bladder wall is thickened and trabeculated, indicating chronic outlet obstruction. The bladder wall appears hyperemic and there is pericystic stranding. A bladder diverticulum is seen posteriorly on the left and measures up to 1.9 cm (axial image #[id number]). Skeletal structures: The skeletal structures are osteopenic. Lumbosacral sp ondylosis is observed. No lytic or blastic lesions are seen. IMPRESSION: 1. Motion degraded examination. 2. Findings are typical for cystitis. Correlation with clinical findings and urinalysis will be required. 3. Prostatomegaly with evidence of chronic bladder outlet obstruction. 4. Advanced emphysema. 5. Numerous bilateral renal cysts measure up to 5 cm. 6. Additional findings as above. Electronically signed by: Panfilo Huerta M.D. 09/08/2018 5:08 PM XR chest 1V portable HISTORY: Sepsis COMPARISON: Chest 03/27/2017. FINDINGS: Slightly rotated study. The lungs are clear. The heart is normal in size. No pleural effusions. No pneumothorax. Suspect mild emphysema. IMPRESSION: No significant change compared to the prior study. No acute process. Electronically signed by: Chuck Medrano M.D. 09/08/2018 3:19 PM ECG Data Attestation: I personally reviewed and interpreted this ECG as follows: Indication: other (weakness) Rate (beats per minute): 107 Rhythm: sinus tachycardia Findings: + LAFB and + RBBB (incomplete); no acute ischemic change Comparison ECG Date: from Change: no significant change Blood Pressure Blood Pressure Findings: Elevated blood pressure Blood Pressure Disposition: further management by hospitalist MEI Narrative The patient is a 77 y/o gentleman current inmate with a pmhx of Emphysema, CAD/NSTEMI, prostate cancer who presents to the emergency department with fevers, chills in the setting of having UTI per HPI. On arrival the patient is uncomfortable appearing in NAD, AF with HR 110s and otherwise VSS. On exam the patient appears clinically dry. Scant dried blood adjacent to urethral meatus. Abdomen benign. EKG with incomplete RBBB and LAFB similar to prior. CXR negative for acute process. WBC wnl. H/H 12.3/36.1 similar to prior values. VBG unremarkable. Chemistry without acidosis. Troponin 0.105, which is most likely related to demand given the patients presumed sepsis. Patient denies CP or SOB. UA with LE 3+ WBC>30, RBC>30, Bacteria 1+. Given patients tachycardia and fevers prior to arrival in the setting of known infectious source patient was treated empirically for sepsis with Zosyn and Vancomycin. CT abd/pelvis demonstrates bladder wall thinking suggestive of cysitis. Procalcitonin 0.19. Case d/w Dr. Henderson, [facility] hospitalist who will evaluate the patient for admission. Impression & Plan Sepsis, Acute UTI, Elevated troponin Critical Care Time I have personally spent greater than 35 minutes of critical care time in the direct management of this patient. This includes bedside care, interpretation of diagnostic studies, and testing, discussion with consultants, patient, and family members, and other required patient management activities. This 35 minutes is in excess of all separately billable procedures. Critical Care Time: Yes Total Critical Care Time: 35 Discharge Plan Visit Data *Final* Discharge Date/Time: 09/08/18 18:01 Chief Complaint: Illness ED Provider: Campbell Ortega Discharge Problem: Sepsis, Acute UTI, Elevated troponin Patient Disposition: Admitted As Inpatient Discharge Instructions Interventions: ED Discharge Assessment Last Done: 09/08/18 18:01 Discharge Problem: Sepsis Qualifiers: Sepsis type: sepsis due to unspecified organism Qualified Code(s): A41.9 - Sepsis, unspecified organism The scribe's documentation has been prepared under my direction and personally reviewed by me in its entirety. I confirm that the note above accurately reflects all work, treatment, procedures, and medical decision making performed by me.
[2018-09-09] MEDS: PIPERACILLIN/TAZOBACTAM 3.375 GM in DEXTROSE 5% 100 ML IV SCH ×3 (03:40→20:23)
[2018-09-09] MEDS: SODIUM CHLORIDE 0.9% 1000ML 1,000 ML IV SCH ×3 (05:32→20:17)
[2018-09-09] MEDS ORDERED: PERFLUTREN LIPID MICROSPHERE (DEFINITY) IV ONE (07:54)
[2018-09-09] MEDS: TIMOLOL MALEATE 0.5% OP SOLN 5 ML BTL OPB SCH ×2 (08:10→22:11)
[2018-09-09] MEDS: DORZOLAMIDE HCL 2% OPH SOLN 10 ML BTL OPB SCH ×2 (08:10→22:11)
[2018-09-09] MEDS: LATANOPROST 0.005% OP SOLN 2.5 ML BTL OPB SCH (08:11)
[2018-09-09] MEDS: BRIMONIDINE TARTRATE 0.2% 5ML OP SCH ×2 (08:11→21:21)
[2018-09-09] MEDS: prednisoLONE acetate 1% OP SUSP 5 ML BTL OPR SCH ×4 (08:12→21:55)
[2018-09-09] MEDS: PILOCARPINE HCL 1% OP SOLN 15 ML BTL OPB SCH ×4 (08:12→21:24)
[2018-09-09] MEDS: ASPIRIN 81 MG ECTAB PO SCH (08:13)
[2018-09-09] MEDS: PANTOprazole 40 MG TAB PO SCH (08:13)
[2018-09-09] MEDS: PRIMIDONE 50 MG TAB PO SCH (08:13)
[2018-09-09 08:34] LABS: Basophils # (auto) 0.01 K/uL (0-0.2); Basophils % (auto) 0.1 %; Eosinophils # (auto) 0.01 K/uL (0-0.5); Eosinophils % (auto) 0.1 %; Hematocrit (blood only) 32.2 % (42-52); Immature Granulocytes # (auto) 0.03 K/uL (0.00-0.02); Immature Granulocytes % (auto) 0.4 %; Lymphocytes # (auto) 1.29 K/uL (1.2-3.4); Lymphocytes % (auto) 15.3 %; Mean Corpuscular Hgb Conc 34.2 g/dL (32-36); Mean Corpuscular Volume 84.7 fL (80-100); Mean Platelet Volume 10.4 fL (7.4-10.4); Monocytes # (auto) 0.82 K/uL (0.11-0.59); Monocytes % (auto) 9.7 %; Neutrophils # (auto) 6.26 K/uL (1.4-6.5); Neutrophils % (auto) 74.4 %; Platelet Count 181 K/uL (130-400); RDW Coefficient of Variation 14.5 % (11.5-14.5); RDW Standard Deviation 44.5 fL (36.4-46.3); White Blood Count 8.42 K/uL (4.8-10.8)
[2018-09-09 09:07] LABS: BUN Creatinine Ratio 10.4 (10-20); Calcium 8.1 mg/dl (8.5-10.1); Creatinine Clr Calc Pharmacy 46.7 ml/min; Est GFR (African American) 63.7; Est GFR (Non-African American) 54.9; Potassium 4.7 mmol/L (3.5-5.1)
[2018-09-09 09:12] LABS: Magnesium 2.1 mg/dl (1.8-2.4); Phosphorus 2.5 mg/dl (2.5-4.9); Troponin I 0.802 ng/ml (0-0.045)
--- NOTE | 2018-09-09 09:48 | Urology Consultation ---
Date of Consultation September 09, 2018 Assessment & Plan (1) Hematuria: (2) Acute UTI: Hematuria in the setting of UTI, sepsis. Recommend antibiotic coverage per culture sensitivities for a total of 14d of coverage. CT demonstrates prostate enlargement and CANCHOLA- patient remains on Tamsulosin & Finasteride. Patient is experiencing incontinence. Will order bladder scan Q6 hours to assess emptying, Contreras insertion PRN for PVR >300ml. If Contreras is inserted it should stay in for 10-14 days. Patient reports that he has been incarcerated x 20 years. Patient should have existing urologist through his clinic [facility] the [facility] living due to reported prostate surgery ~5 years ago and his current medication regimen - recommend making established urologist aware of hospitalization so they can coordinate appropriate follow up including cystoscopy if hematuria persists. Thank you for allowing us to participate in the care of this patient. Please contact our service with any additional questions or concerns. History of Present Illness Attending Physician: Aye Henderson MD History of Present Illness 77YO male with hematuria in setting of UTI. Patient is a prisoner, was brought to ER per recommendation of [facility] due to drowziness/confusion and hematuria. He was admitted for management of sepsis, with a prelim+ UC&S. Blood cultures pending. Remains on empiric Zosyn. His CT abd/pelvis completed upon admission demonstrates bilateral renal cysts without hydronephrosis, prostatic enlargement, and evidence of CANCHOLA. Current urinary medications include Finasteride daily and Tamsulosin (2 tabs QHS). Patient reports hx of prostate cancer and believes he had a "prostate surgery" ~5 years ago. Patient reports fatigue this morning, was awake overnight due to episodes of bowel and urinary incontinence. Denies fever/chills. Denies nausea/vomiting. Mansoor flank/abdominal pain. Voiding spontaneously. Feels that his bladder is empty. +Hematuria. +Dysuria. Allergies Allergy/AdvReac Type Severity Reaction Status Date / Time Bactrim Allergy Unknown . Verified 10/07/17 06:20 Home Medications Home Medications Medication Instructions Recorded Confirmed Type amlodipine 5 mg PO DAILY 09/08/18 09/08/18 History aspirin 81 mg PO DAILY 09/08/18 09/08/18 History brimonidine 1 drp OPHTHALMIC (EYE) BID 09/08/18 09/08/18 History dorzolamide 1 drp OPB BID 09/08/18 09/08/18 History enalapril maleate 10 mg PO DAILY 09/08/18 09/08/18 History finasteride 5 mg PO QPM 09/08/18 09/08/18 History latanoprost 1 drp OPB DAILY 09/08/18 09/08/18 History omeprazole 20 mg PO DAILY 09/08/18 09/08/18 History pilocarpine HCl 1 drp OPB QID 09/08/18 09/08/18 History prednisolone acetate 1 drp OPR QID 09/08/18 09/08/18 History primidone 100 mg PO DAILY 09/08/18 09/08/18 History tamsulosin 0.8 mg PO HS 09/08/18 09/08/18 History timolol 1 drp OPB BID 09/08/18 09/08/18 History Patient History Medical History Chest pain (Acute) Shortness of breath (Acute) Depression GERD (gastroesophageal reflux disease) Glaucoma HTN (hypertension), benign History of non-ST elevation myocardial infarction (NSTEMI) History of prostate cancer Tremor Surgical History History of appendectomy History of prostate surgery Family History Other Family history non-contributory Social History Communication Ability: Effective Signal Operator Required: No Beliefs That Will Affect Care: None Current Living Situation: Other Current Living Situation Comment: correctional facility current occupation: incarcerated for at least 25 years; previously was an skin care technician Other Information That Helps Us Care for You: No Feels Safe at Home: Yes Smoking Status: Current every day smoker Hx Alcohol Use: No Hx Substance Use: No Review of Systems Constitutional: + fatigue; no fever and no chills Eyes: no corrective lenses Ear, Nose, Mouth, Throat: no problem reported Respiratory: no dyspnea Cardiovascular: no chest pain Gastrointestinal: no nausea and no vomiting Genitourinary (Male): + dysuria and + hematuria; no difficulty urinating and no flank pain Musculoskeletal: no back pain Integumentary: no problem reported Psychiatric: no problem reported Physical Exam Vital Signs (Past 24 Hours): Last Vital Signs Temp 36.9 C 09/09/18 08:14 Pulse 67 09/09/18 08:14 Resp 18 09/09/18 04:15 BP 170/85 H 09/09/18 08:14 Pulse Ox 96 09/09/18 08:14 Constitutional: no acute distress Neck: normal visual inspection Respiratory: normal respiratory effort; does not use accessory muscles Cardiovascular: Vessels: no JVD Gastrointestinal (Abdomen): Percussion/Palpation: abdomen soft Psychiatric: A+Ox3, euthymic affect Genitourinary: Urine in urinal is yellow +blood tinged
[2018-09-09] MEDS ORDERED: VANCOMYCIN HCL 1,000 MG in SODIUM CHLORIDE 0.9% 250 ML IV SCH (10:00)
--- NOTE | 2018-09-09 19:35 | Hospitalist Progress Note ---
Date of Service September 09, 2018 Assessment & Plan (1) Sepsis: This patient is a 77-year-old male prisoner with a history of prostate cancer, glaucoma, HTN, GERD, presumed tremor, and depression, with NSTEMI in 2012, who presents to the ER with fevers and chills, along with evidence of [facility]. He apparently had a urine catheterization for retention approximately 1 week ago but that urine culture is reviewed in the records showed mixed darrion and there were no nitrates in the urinalysis at that time. Since then, he has had daily hematuria and then spiked a fever on the day of admission to 102.2. He had another catheterized sample which did show nitrates and given the fever and the tachycardia, he was sent to the ER for further evaluation. He denies any abdominal or flank pain. The [facility] guards that are with him do report that he was not acting like himself and was more confused when he first came to the ER, but since receiving antibiotics and IV fluids, he is starting to return to normal mental status. He did have a mildly elevated troponin at 0.1 but denies any chest pain or shortness of breath. His ECG was unchanged from previous with an incomplete right bundle branch block and was with sinus tachycardia. He did not have a fever in the ER, however he was given Tylenol at the [facility] prior to arrival. His urinalysis here was grossly abnormal, and he had doyle red urine that he was voiding spontaneously. In the ER, he was given IV fluids, IV vancomycin and Zosyn. With tachypnea, tachycardia, fever prior to arrival documented at 102.2. With urinary tract infection evident with a grossly abnormal urinalysis. CT abdomen/pelvis with evidence of cystitis and enlarged prostate. Lactate is normal Improved today-can remove from tele BCxs with 1/2 gram variable bacilli-could be contaminant from skin- Corynebacterium? Ur cx with Alpha Strep-not Enterococcus -Continue Zosyn given Strep on Ur cx -can dc Vanc -Follow blood cultures, urine culture -repeat BCxs to ensure sterility -Given 2 L of normal saline in the ER, and was given volume resuscitation for low normal blood pressure with normal saline at 125 mL's per hour-can now dc as BP normal to high -Tylenol as needed for fevers (2) Acute UTI: With grossly abnormal UA. He had an abnormal UA on urinalysis at the present 1 week ago but was without nitrate and urine culture grew less than 10,000 colonies of mixed darrion that was likely contaminant. Possibly given straight catheterization at that time, he had trauma to the prostate and is now here with gross hematuria possibly hemorrhagic prostatitis, along with sepsis as above. -Treating with IV Zosyn as above -Follow urine culture-alpha Strep not Enterococcus -Consulted urology as below (3) Hematuria: Possibly hemorrhagic prostatitis as above, with recent straight catheterization at the present -With a history of prostate cancer and heterogenous enlarged prostate on CT scan, no hydronephrosis but has evidence of chronic bladder outlet obstruction -Consult urology appreciated -Follow and if unable to pass urine, will Place Contreras catheter -bladder scan for PVRs q6 -recommend f/u with previous Urology through [facility] system-pt thinks this is in [place] (4) Enlarged prostate: As seen on CT scan, with history of prostate cancer -Consult urology as above -Continue home finasteride and Flomax (5) Glaucoma: Stable -Continue home eyedrops (6) Tremor: Presumed diagnosis given that he is on primidone -Continue primidone (7) GERD (gastroesophageal reflux disease): -Continue PPI (8) History of prostate cancer: Status post surgery, unknown other treatment is no documentation available and patient unsure (9) History of non-ST elevation myocardial infarction (NSTEMI): History of this in the past from review of records seems to be myocardial demand ischemia -Given elevated troponin here, will continue baby aspirin once daily for now despite hematuria and follow --He is notably not on a beta-madison or statin drug-I do not think he has proven CAD and therefore not necessarily indicated (10) Depression: Stable Review of his medication list does not currently show any medications to treat depression but this is listed as a diagnosis on his records (11) HTN (hypertension), benign: Blood pressures now stable to mildly elevated -Willcontinue to hold home amlodipine and enalapril -dc IVFs -Restart meds when blood pressure rises again Renal function normal (12) Elevated troponin: Troponin 0.1 on arrival, ECG without ischemic changes Serial troponin 0.105/0.196/0.8/0.3 Could be myocardial demand ischemia given tachycardia and demand in the setting of sepsis. He does not have any chest pain No events on tele ECHO without WMAs and with norm-can transfer off tele (13) Current smoker: Encourage cessation He does have evidence of emphysema on chest x-ray but reports no baseline pulmonary symptoms -Follow and offer nicotine patch as needed (14) Anemia: Normocytic anemia with hemoglobin mildly low at 11.0 with slight drop from previous-could be hemodilutional and some blood loss Iron studies on labs done a week ago at the [facility] show anemia of chronic disease pattern -pt requests no further labs be done at this time and not needed as hematuria has resolved (15) Hypophosphatemia: Phosphorus low on arrival at 1.6-replaced with IV phosphorus in the ER resolved (16) Hypomagnesemia: Magnesium level low at 1.6 on arrival -replaced and resolved (17) Diarrhea: With incontinence to liquid stool today, some formed stool. CT abd/pel with "colonic fecal retention" Could be encoparesis? Follow Is on abx so if persists, could check C. diff (18) DVT prophylaxis: No chemical means for DVT prophylaxis at this time given gross hematuria, SCDs only Disposition-take off tele, eventually would go back to the [facility] PT consult Subjective Pt reports he feels stiff and painful in his legs when he first tries to get up out of bed. Also, says he does not want any more blood draws; reports "I'm tired of being a pin cushion!" Denies CP or OSB. No abd pain. His urine is dark brown with sediemnt but no kwaku hematuria as per RN. He is having incontinence to liquid stool today which is unusual for him. Tele with ST with rates in 110s, PACs Review of Systems All systems reviewed & are unremarkable except as noted in HPI & below Physical Exam Vital Signs (Past 24 Hours): Last Vital Signs Temp 36.6 C 09/09/18 14:59 Pulse 87 09/09/18 16:00 Resp 18 09/09/18 14:59 BP 156/82 H 09/09/18 14:59 Pulse Ox 98 09/09/18 14:59 Constitutional: WD/WN, vitals as above Eyes: PERRL, conjunctivae normal, anicteric sclerae ENMT: Ears: no hearing impairment and no external ear abnormality Nose: no external nose abnormality Mouth: + oral mucosal abnormality (Dry mucous membranes) Neck: trachea midline, no thyromegaly Respiratory: normal respiratory effort, lungs clear to auscultation Cardiovascular: RRR, no murmur, no edema Gastrointestinal (Abdomen): normal bowel sounds, soft, nontender, no hepatosplenomegaly Musculoskeletal: Extremities: extremities normal to inspection; no cyanosis and no clubbing Skin: no rashes, warm and dry Neurologic: moves all extremities and awake; no focal motor deficits Psychiatric: A+Ox3, euthymic affect Genitourinary: no testicular masses, no penis abnormality Results & Data Laboratory Results 09/09/18 09/09/18 09/09/18 Range/Units 16:23 08:18 08:18 WBC (4.8-10.8) K/uL RBC (4.7-6.1) M/uL Hgb (14.0-18.0) g/dL Hct (42-52) % MCV (80-100) fL MCH (25-34) pg MCHC (32-36) g/dL RDW Std Deviation (36.4-46.3) fL RDW Coeff of Bouchra (11.5-14.5) % Plt Count (130-400) K/uL MPV (7.4-10.4) fL Immature Gran % (Auto) % Neut % (Auto) % Lymph % (Auto) % Barry % (Auto) % Eos % (Auto) % Baso % (Auto) % Immature Gran # (Auto) (0.00-0.02) K/uL Neut # (Auto) (1.4-6.5) K/uL Lymph # (Auto) (1.2-3.4) K/uL Barry # (Auto) (0.11-0.59) K/uL Eos # (Auto) (0-0.5) K/uL Baso # (Auto) (0-0.2) K/uL Sodium 144 (136-145) mmol/L Potassium 4.7 D (3.5-5.1) mmol/L Chloride 114 H (98-107) mmol/L Carbon Dioxide 25 (21-32) mmol/L Anion Gap 4.0 (3-11) BUN 13 (7-18) mg/dl Creatinine 1.24 (0.6-1.4) mg/dl Est Cr Clr Drug Dosing 46.7 ml/min Est GFR ( Amer) 63.7 Est GFR (Non-Af Amer) 54.9 BUN/Creatinine Ratio 10.4 (10-20) Glucose 101 H (70-99) mg/dl Calcium 8.1 L (8.5-10.1) mg/dl Phosphorus 2.5 (2.5-4.9) mg/dl Magnesium 2.1 (1.8-2.4) mg/dl Troponin I 0.364 H* 0.802 H* (0-0.045) ng/ml Nasal Screen MRSA (PCR) (Negative) Influenza Type A (PCR) (Neg) Influenza Type B (PCR) (Neg) 09/09/18 09/08/18 09/08/18 Range/Units 08:18 20:41 19:15 WBC 8.42 (4.8-10.8) K/uL RBC 3.80 L (4.7-6.1) M/uL Hgb 11.0 L (14.0-18.0) g/dL Hct 32.2 L (42-52) % MCV 84.7 (80-100) fL MCH 28.9 (25-34) pg MCHC 34.2 (32-36) g/dL RDW Std Deviation 44.5 (36.4-46.3) fL RDW Coeff of Bouchra 14.5 (11.5-14.5) % Plt Count 181 (130-400) K/uL MPV 10.4 (7.4-10.4) fL Immature Gran % (Auto) 0.4 % Neut % (Auto) 74.4 % Lymph % (Auto) 15.3 % Barry % (Auto) 9.7 % Eos % (Auto) 0.1 % Baso % (Auto) 0.1 % Immature Gran # (Auto) 0.03 H (0.00-0.02) K/uL Neut # (Auto) 6.26 (1.4-6.5) K/uL Lymph # (Auto) 1.29 (1.2-3.4) K/uL Barry # (Auto) 0.82 H (0.11-0.59) K/uL Eos # (Auto) 0.01 (0-0.5) K/uL Baso # (Auto) 0.01 (0-0.2) K/uL Sodium (136-145) mmol/L Potassium (3.5-5.1) mmol/L Chloride (98-107) mmol/L Carbon Dioxide (21-32) mmol/L Anion Gap (3-11) BUN (7-18) mg/dl Creatinine (0.6-1.4) mg/dl Est Cr Clr Drug Dosing ml/min Est GFR ( Amer) Est GFR (Non-Af Amer) BUN/Creatinine Ratio (10-20) Glucose (70-99) mg/dl Calcium (8.5-10.1) mg/dl Phosphorus (2.5-4.9) mg/dl Magnesium (1.8-2.4) mg/dl Troponin I 0.196 H* (0-0.045) ng/ml Nasal Screen MRSA (PCR) Negative (Negative) Influenza Type A (PCR) (Neg) Influenza Type B (PCR) (Neg) 09/08/18 Range/Units 19:15 WBC (4.8-10.8) K/uL RBC (4.7-6.1) M/uL Hgb (14.0-18.0) g/dL Hct (42-52) % MCV (80-100) fL MCH (25-34) pg MCHC (32-36) g/dL RDW Std Deviation (36.4-46.3) fL RDW Coeff of Bouchra (11.5-14.5) % Plt Count (130-400) K/uL MPV (7.4-10.4) fL Immature Gran % (Auto) % Neut % (Auto) % Lymph % (Auto) % Barry % (Auto) % Eos % (Auto) % Baso % (Auto) % Immature Gran # (Auto) (0.00-0.02) K/uL Neut # (Auto) (1.4-6.5) K/uL Lymph # (Auto) (1.2-3.4) K/uL Barry # (Auto) (0.11-0.59) K/uL Eos # (Auto) (0-0.5) K/uL Baso # (Auto) (0-0.2) K/uL Sodium (136-145) mmol/L Potassium (3.5-5.1) mmol/L Chloride (98-107) mmol/L Carbon Dioxide (21-32) mmol/L Anion Gap (3-11) BUN (7-18) mg/dl Creatinine (0.6-1.4) mg/dl Est Cr Clr Drug Dosing ml/min Est GFR ( Amer) Est GFR (Non-Af Amer) BUN/Creatinine Ratio (10-20) Glucose (70-99) mg/dl Calcium (8.5-10.1) mg/dl Phosphorus (2.5-4.9) mg/dl Magnesium (1.8-2.4) mg/dl Troponin I (0-0.045) ng/ml Nasal Screen MRSA (PCR) (Negative) Influenza Type A (PCR) Neg for Influ A (Neg) Influenza Type B (PCR) Neg for Influ B (Neg) BCxs 1/2 with gram variable bacilli Ur cx with alpha-Strep not Enterococcus (1) Sepsis Sepsis type: sepsis due to unspecified organism Qualified Code(s): A41.9 - Sepsis, unspecified organism
[2018-09-09] MEDS: TAMSULOSIN HCL 0.4 MG CAP PO SCH (21:22)
[2018-09-09] MEDS: FINASTERIDE 5 MG TAB PO SCH (21:23)
[2018-09-10] MEDS: PIPERACILLIN/TAZOBACTAM 3.375 GM in DEXTROSE 5% 100 ML IV SCH ×3 (03:31→17:23)
[2018-09-10] MEDS: BRIMONIDINE TARTRATE 0.2% 5ML OP SCH ×2 (08:20→21:08)
[2018-09-10] MEDS: ASPIRIN 81 MG ECTAB PO SCH (08:21)
[2018-09-10] MEDS: PILOCARPINE HCL 1% OP SOLN 15 ML BTL OPB SCH ×4 (08:22→21:10)
[2018-09-10] MEDS: PANTOprazole 40 MG TAB PO SCH (08:22)
[2018-09-10] MEDS: PRIMIDONE 50 MG TAB PO SCH (08:22)
[2018-09-10] MEDS: DORZOLAMIDE HCL 2% OPH SOLN 10 ML BTL OPB SCH ×2 (08:24→21:11)
[2018-09-10] MEDS: prednisoLONE acetate 1% OP SUSP 5 ML BTL OPR SCH ×4 (08:24→21:12)
[2018-09-10] MEDS: TIMOLOL MALEATE 0.5% OP SOLN 5 ML BTL OPB SCH ×2 (08:24→21:11)
[2018-09-10] MEDS: LATANOPROST 0.005% OP SOLN 2.5 ML BTL OPB SCH (08:25)
--- NOTE | 2018-09-10 19:57 | Hospitalist Progress Note ---
Date of Service September 10, 2018 Assessment & Plan (1) Sepsis: This patient is a 77-year-old male prisoner with a history of prostate cancer, glaucoma, HTN, GERD, presumed tremor, and depression, with NSTEMI in 2012, who presents to the ER with fevers and chills, along with evidence of UTI on a catheterized sample at the nursing home. He apparently had a urine catheterization for retention approximately 1 week ago but that urine culture is reviewed in the records showed mixed darrion and there were no nitrates in the urinalysis at that time. Since then, he has had daily hematuria and then spiked a fever on the day of admission to 102.2. He had another catheterized sample which did show nitrates and given the fever and the tachycardia, he was sent to the ER for further evaluation. He denies any abdominal or flank pain. The nursing home guards that are with him do report that he was not acting like himself and was more confused when he first came to the ER, but since receiving antibiotics and IV fluids, he is starting to return to normal mental status. He did have a mildly elevated troponin at 0.1 but denies any chest pain or shortness of breath. His ECG was unchanged from previous with an incomplete right bundle branch block and was with sinus tachycardia. He did not have a fever in the ER, however he was given Tylenol at the nursing home prior to arrival. His urinalysis here was grossly abnormal, and he had doyle red urine that he was voiding spontaneously. In the ER, he was given IV fluids, IV vancomycin and Zosyn. With tachypnea, tachycardia, fever prior to arrival documented at 102.2. With urinary tract infection evident with a grossly abnormal urinalysis. CT abdomen/pelvis with evidence of cystitis and enlarged prostate. Lactate is normal Sepsis is resolved Afebrile since evening of 09/08 BCxs with 1/2 Bacillus species, not anthracis, likely contaminant? Will check wi th ID and get opinion Repeat BCxs NGTD Ur cx with Alpha Strep-not Enterococcus -Continue Zosyn and can likely transition to po abx tomorrow to finish out a 14 day course -Follow blood cultures (2) Acute UTI: With grossly abnormal UA. He had an abnormal UA on urinalysis at the nursing home 1 week ago but was without nitrate and urine culture grew less than 10, 000 colonies of mixed darrion that was likely contaminant. Possibly given straight catheterization at that time, he had trauma to the prostate and is now here with gross hematuria possibly hemorrhagic prostatitis, along with sepsis as above. -Treating with IV Zosyn as above - urine culture-alpha Strep not Enterococcus -Consulted urology as below (3) Hematuria: Possibly hemorrhagic prostatitis as above, with recent straight catheterization Now completely resolved with treating infection -With a history of prostate cancer and heterogenous enlarged prostate on CT scan, no hydronephrosis but has evidence of chronic bladder outlet obstruction -Consult urology appreciated -Follow and if unable to pass urine, will Place [facility] catheter -bladder scan for PVRs q6 -recommend f/u with previous Urology through nursing home system-pt thinks this is in [place] (4) Enlarged prostate: As seen on CT scan, with history of prostate cancer -Consult urology as above -Continue home finasteride and Flomax (5) Glaucoma: Stable -Continue home eyedrops (6) Tremor: Presumed diagnosis given that he is on primidone -Continue primidone (7) GERD (gastroesophageal reflux disease): -Continue PPI (8) History of prostate cancer: Status post surgery, unknown other treatment is no documentation available and patient unsure (9) History of non-ST elevation myocardial infarction (NSTEMI): History of this in the past from review of records seems to be myocardial demand ischemia -Given elevated troponin here, continue baby aspirin once daily --He is notably not on a beta-madison or statin drug-I do not think he has proven CAD and therefore not necessarily indicated (10) Depression: Stable Review of his medication list does not currently show any medications to treat depression but this is listed as a diagnosis on his records (11) HTN (hypertension), benign: Blood pressures now normal to high -Will restart home amlodipine and enalapril Renal function normal (12) Elevated troponin: Troponin 0.1 on arrival, ECG without ischemic changes Serial troponin 0.105/0.196/0.8/0.3 Could be myocardial demand ischemia given tachycardia and demand in the setting of sepsis. He does not have any chest pain No events on tele ECHO without WMAs and with norm-no events on tele (13) Current smoker: Encourage cessation He does have evidence of emphysema on chest x-ray but reports no baseline pulmonary symptoms -Follow and offer nicotine patch as needed (14) Anemia: Normocytic anemia with hemoglobin mildly low at 11.0 with slight drop from previous-could be hemodilutional and some blood loss Iron studies on labs done a week ago at the nursing home show anemia of chronic disease pattern -pt requests no further labs be done at this time and not needed as hematuria has resolved (15) Hypophosphatemia: Phosphorus low on arrival at 1.6-replaced with IV phosphorus in the ER resolved (16) Hypomagnesemia: Magnesium level low at 1.6 on arrival -replaced and resolved (17) Diarrhea: With incontinence to liquid stool and continued loose stools today CT abd/pel with "colonic fecal retention" on admission Could be encoparesis? -check C. diff -check KUB to see if has constipation (18) DVT prophylaxis: No chemical means for DVT prophylaxis at this time given gross hematuria, SCDs only Disposition-remain in hospital, eventually would go back to the nursing home-possibly tomrorow PT consult pending Subjective Pt still has c/o loose stools with each time he goes to urinate. No more hematuria. No abd pain. Does not feel he has constipation as CT abd showed. Denies nausea and guards at bedside report he is eating 100% of his meals. Denies chest pain or SOB Review of Systems All systems reviewed & are unremarkable except as noted in HPI & below Physical Exam Vital Signs (Past 24 Hours): Last Vital Signs Temp 36.4 C L 09/10/18 15:48 Pulse 61 09/10/18 15:48 Resp 18 09/10/18 15:48 BP 118/65 09/10/18 15:48 Pulse Ox 100 09/10/18 15:48 Constitutional: WD/WN, vitals as above Eyes: PERRL, conjunctivae normal, anicteric sclerae ENMT: Ears: no hearing impairment and no external ear abnormality Nose: no external nose abnormality Neck: trachea midline, no thyromegaly Respiratory: normal respiratory effort, lungs clear to auscultation Cardiovascular: RRR, no murmur, no edema Gastrointestinal (Abdomen): normal bowel sounds, soft, nontender, no hepatosplenomegaly Musculoskeletal: Extremities: extremities normal to inspection; no cyanosis and no clubbing Skin: no rashes, warm and dry Neurologic: moves all extremities and awake; no focal motor deficits Psychiatric: A+Ox3, euthymic affect Results & Data Laboratory Results BCxs 09/08 with 1/2 Bacillus species not anthracis BCx 09/09- NGTD (1) Sepsis Sepsis type: sepsis due to unspecified organism Qualified Code(s): A41.9 - Sepsis, unspecified organism
[2018-09-10] MEDS: TAMSULOSIN HCL 0.4 MG CAP PO SCH (21:11)
[2018-09-10] MEDS: FINASTERIDE 5 MG TAB PO SCH (21:12)
--- NOTE | 2018-09-10 21:55 | XRay Report ---
KUB CLINICAL HISTORY: Diarrhea. FINDINGS: An AP, portable, supine abdominal radiograph is correlated with abdominal CT dated 9. There is a nonobstructed abdominal bowel gas pattern. No evidence of intraperitoneal free air is s een on this supine examination. There is atherosclerotic calcification of the abdominal aorta. There is no radiographic evidence of nephrolithiasis. The skeletal structures are osteopenic. Degenerative change is noted in the lumbar spine and hips. IMPRESSION: Nonobstructed abdominal bowel gas pattern. Electronically signed by: Panfilo Huerta M.D. 09/10/2018 9:53 PM
[2018-09-11] MEDS: PIPERACILLIN/TAZOBACTAM 3.375 GM in DEXTROSE 5% 100 ML IV SCH ×3 (00:46→16:40)
[2018-09-11] MEDS ORDERED: VANCOMYCIN TROUGH ONE (01:30)
[2018-09-11] MEDS: LATANOPROST 0.005% OP SOLN 2.5 ML BTL OPB SCH (07:44)
[2018-09-11] MEDS: prednisoLONE acetate 1% OP SUSP 5 ML BTL OPR SCH ×4 (07:44→21:43)
[2018-09-11] MEDS: BRIMONIDINE TARTRATE 0.2% 5ML OP SCH ×2 (07:44→20:51)
[2018-09-11] MEDS: DORZOLAMIDE HCL 2% OPH SOLN 10 ML BTL OPB SCH ×2 (07:44→21:31)
[2018-09-11] MEDS: TIMOLOL MALEATE 0.5% OP SOLN 5 ML BTL OPB SCH ×2 (07:44→21:12)
[2018-09-11] MEDS: PILOCARPINE HCL 1% OP SOLN 15 ML BTL OPB SCH ×4 (07:44→20:58)
[2018-09-11] MEDS: PANTOprazole 40 MG TAB PO SCH (09:03)
[2018-09-11] MEDS: ENALAPRIL MALEATE 10 MG TAB PO SCH (09:03)
[2018-09-11] MEDS: PRIMIDONE 50 MG TAB PO SCH (09:03)
[2018-09-11] MEDS: ASPIRIN 81 MG ECTAB PO SCH (09:03)
[2018-09-11] MEDS: AMLODIPINE BESYLATE 5 MG TAB PO SCH (09:04)
[2018-09-11] MEDS ORDERED: VANCOMYCIN CONSULT ACTIVE PRN (20:18)
--- NOTE | 2018-09-11 20:23 | Hospitalist Progress Note ---
Date of Service September 11, 2018 Assessment & Plan (1) Sepsis: This patient is a 77-year-old male prisoner with a history of prostate cancer, glaucoma, HTN, GERD, tremor, and depression, with NSTEMI in 2012, who presents to the ER with fevers and chills, along with evidence of UTI on a catheterized sample at the alf. He apparently had a urine catheterization for retention approximately 1 week ago but that urine culture is reviewed in the records showed mixed darrion and there were no nitrates in the urinalysis at that time. Since then, he had daily hematuria and then spiked a fever on the day of admission to 102.2. He had another catheterized sample which did show nitrates and given the fever and the tachycardia, he was sent to the ER for further evaluation. He denies any abdominal or flank pain. The alf guards that are with him do report that he was not acting like himself and was more confused when he first came to the ER, but since receiving antibiotics and IV fluids, he is starting to return to normal mental status. He did have a mildly elevated troponin at 0.1 but denies any chest pain or shortness of breath. His ECG was unchanged from previous with an incomplete right bundle branch block and was with sinus tachycardia. He did not have a fever in the ER, however he was given Tylenol at the alf prior to arrival. His urinalysis here was grossly abnormal, and he had doyle red urine that he was voiding spontaneously. In the ER, he was given IV fluids, IV vancomycin and Zosyn. With tachypnea, tachycardia, fever prior to arrival documented at 102.2. With urinary tract infection evident with a grossly abnormal urinalysis. CT abdomen/pelvis with evidence of cystitis and enlarged prostate. Lactate is normal Sepsis is resolved Afebrile since evening of 09/08 BCxs with 1/2 Bacillus species, not anthracis, likely contaminant? Will check with ID and get opinion-called and no return call over the weekend-still awaiting opinion about whether need to treat Bacillus or not. He does have diarrhea and could have a Bacillus cereus infection for example. Guards are not aware of a food poisoning-like outbreak at the alf however. -discussed with pharmacy-will add Vanco back on for now as it covers Bacillus whereas Zosyn may not Repeat BCxs NGTD Ur cx with Alpha Strep-not Enterococcus-not consistent with nitrites in urine but treating nonetheless and hematuria has cleared -Continue Zosyn and can likely transition to po abx tomorrow to finish out a 14 day course for the UTI (2) Acute UTI: With grossly abnormal UA. He had an abnormal UA on urinalysis at the alf 1 week ago but was without nitrate and urine culture grew less than 10,000 colonies of mixed darrion that was likely contaminant. Possibly given straight catheterization at that time, he had trauma to the prostate and is now here with gross hematuria possibly hemorrhagic prostatitis, along with sepsis as above. -Treating with IV Zosyn as above - urine culture-alpha Strep not Enterococcus -Consulted urology as below (3) Hematuria: Possibly hemorrhagic prostatitis as above, with recent straight catheterization Now completely resolved with treating infection -With a history of prostate cancer and heterogenous enlarged prostate on CT scan, no hydronephrosis but has evidence of chronic bladder outlet obstruction -Consult urology appreciated -voiding now without difficulty -bladder scan for PVRs q6 have been normal -recommend f/u with previous Urology through alf system-pt thinks this is in [place] (4) Enlarged prostate: As seen on CT scan, with history of prostate cancer -Consult urology as above -Continue home finasteride and Flomax (5) Glaucoma: Stable -Continue home eyedrops (6) Tremor: Presumed diagnosis given that he is on primidone -Continue primidone (7) GERD (gastroesophageal reflux disease): -Continue PPI (8) History of prostate cancer: Status post surgery, unknown other treatment is no documentation available and patient unsure (9) History of non-ST elevation myocardial infarction (NSTEMI): History of this in the past from review of records seems to be myocardial demand ischemia -Given elevated troponin here, continue baby aspirin once daily --He is notably not on a beta-madison or statin drug-I do not think he has proven CAD and therefore not necessarily indicated (10) Depression: Stable Review of his medication list does not currently show any medications to treat depression but this is listed as a diagnosis on his records (11) HTN (hypertension), benign: Blood pressures now normal (BP meds held initially for hypotension) -continue amlodipine and enalapril Renal function normal (12) Elevated troponin: Troponin 0.1 on arrival, ECG without ischemic changes Serial troponin 0.105/0.196/0.8/0.3 Could be myocardial demand ischemia given tachycardia and demand in the setting of sepsis. 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, now would you?" He does have evidence of emphysema on chest x-ray but reports no baseline pulmonary symptoms -Follow and offer nicotine patch as needed (14) Anemia: Normocytic anemia with hemoglobin mildly low at 11.0 with slight drop from previous-could be hemodilutional and some blood loss Iron studies on labs done a week ago at the alf show anemia of chronic disease pattern -pt requests no further labs be done at this time and not needed as hematuria has resolved (15) Hypophosphatemia: Phosphorus low on arrival at 1.6-replaced with IV phosphorus in the ER resolved (16) Hypomagnesemia: Magnesium level low at 1.6 on arrival -replaced and resolved (17) Diarrhea: With incontinence to liquid stool and continued loose stools today CT abd/pel with "colonic fecal retention" on admission Could be encoparesis? KUB without evidence of stool so not likely encoparesis C. diff negative -check Stool culture, O&P started before arrival to hospital -start probiotics (18) DVT prophylaxis: No chemical means for DVT prophylaxis have been given due to gross hem aturia, SCDs However no hematuria in many days--> will start Lovenox Disposition-remain in hospital, back to the alf after determination for whether the Bacillus bacteremia needs to be treated? dc possibly Wednesday Subjective Still biggest complaint is diarrhea. Having a loose stool come out uncontrollably every time he goes to urinate. No hematuria. No abd pain, no chest pain or SOB. Feels stronger today and is ambulating to the bathroom and worked with PT. Review of Systems All systems reviewed & are unremarkable except as noted in HPI & below Physical Exam Vital Signs (Past 24 Hours): Last Vital Signs Temp 36.7 C 09/11/18 15:43 Pulse 62 09/11/18 15:43 Resp 18 09/11/18 15:43 BP 105/62 09/11/18 15:43 Pulse Ox 97 09/11/18 15:43 Constitutional: WD/WN, vitals as above Eyes: PERRL, conjunctivae normal, anicteric sclerae ENMT: Ears: no hearing impairment and no external ear abnormality Nose: no external nose abnormality Neck: trachea midline, no thyromegaly Respiratory: normal respiratory effort, lungs clear to auscultation Cardiovascular: RRR, no murmur, no edema Gastrointestinal (Abdomen): normal bowel sounds, soft, nontender, no hepatosplenomegaly Musculoskeletal: Extremities: extremities normal to inspection; no cyanosis and no clubbing Skin: no rashes, warm and dry Neurologic: moves all extremities and awake; no focal motor deficits Psychiatric: A+Ox3, euthymic affect Results & Data Laboratory Results BCxs 1/2 with Bacillus species not anthracis Repeat BCs NGTD Ur cx alpha Strep, not Enterococcus (1) Sepsis Sepsis type: sepsis due to unspecified organism Qualified Code(s): A41.9 - Sepsis, unspecified organism
--- NOTE | 2018-09-11 20:34 | Pharmacy Report ---
Pharmacy Abx Dose Short Note - Date of Service September 11, 2018 - Assessment & Plan Assessment: 77 yo Male/Female receiving zosyn/VANC-IV. Await ID consult to determine if Vanc necessary to continue. Plan: Vanc-IV: * Estimated pharmacokinetics: Vd~0.7 L/kg, Ke~0.0434 hr-1, T 1/2~16 hrs * LOADING DOSE: VANC 1500mg (~20mg/kg) IV x 1, then * MAINTENANCE DOSE: VANC 1000mg (~15mg/kg) IV q 18 hours. * VANC Trough Level ordered @ [facility] prior to 09/14/17 0200 dose Zosyn: COntinue 3.375g IV CI q8h for est GFR >20mL/min Pharmacy will continue to follow and will adjust dose/frequency as necessary. Thank you.
[2018-09-11] MEDS ORDERED: VANCOMYCIN HCL 1,500 MG in SODIUM CHLORIDE 0.9% 500 ML IV ONE (20:45)
[2018-09-11] MEDS: TAMSULOSIN HCL 0.4 MG CAP PO SCH (20:51)
[2018-09-11] MEDS: FINASTERIDE 5 MG TAB PO SCH (20:51)
[2018-09-12] MEDS: PIPERACILLIN/TAZOBACTAM 3.375 GM in DEXTROSE 5% 100 ML IV SCH ×2 (00:47→08:08)
[2018-09-12] MEDS: ENOXAPARIN INJ 40 MG/0.4 ML SYR SQ SCH (08:06)
[2018-09-12] MEDS: ASPIRIN 81 MG ECTAB PO SCH (08:07)
[2018-09-12] MEDS: prednisoLONE acetate 1% OP SUSP 5 ML BTL OPR SCH ×4 (08:07→22:39)
[2018-09-12] MEDS: PRIMIDONE 50 MG TAB PO SCH (08:07)
[2018-09-12] MEDS: SACCHAROMYCES BOULARDII 250 MG CAP PO SCH (08:07)
[2018-09-12] MEDS: PANTOprazole 40 MG TAB PO SCH (08:07)
[2018-09-12] MEDS: LATANOPROST 0.005% OP SOLN 2.5 ML BTL OPB SCH (08:07)
[2018-09-12] MEDS: TIMOLOL MALEATE 0.5% OP SOLN 5 ML BTL OPB SCH ×2 (08:07→22:04)
[2018-09-12] MEDS: ENALAPRIL MALEATE 10 MG TAB PO SCH (08:07)
[2018-09-12] MEDS: DORZOLAMIDE HCL 2% OPH SOLN 10 ML BTL OPB SCH ×2 (08:07→22:25)
[2018-09-12] MEDS: AMLODIPINE BESYLATE 5 MG TAB PO SCH (08:07)
[2018-09-12] MEDS: PILOCARPINE HCL 1% OP SOLN 15 ML BTL OPB SCH ×4 (08:08→21:46)
[2018-09-12] MEDS: BRIMONIDINE TARTRATE 0.2% 5ML OP SCH ×2 (08:08→21:42)
[2018-09-12 09:13] LABS: Creatinine Clr Calc Pharmacy 55.7 ml/min; Est GFR (African American) 78.8
--- NOTE | 2018-09-12 11:23 | Infectious Disease Consult ---
Date of Consultation September 12, 2018 Assessment & Plan (1) Acute UTI: can change abx to po augmentin to complete 7 day course, may help with diarrhea. suspect blood culture with gpr represent skin darrion, can stop vanco. c diff negative, stool studies pending. History of Present Illness Attending Physician: Kalin Nunn DO pt admitted from detention with f/c and urinary retention, has h/o prostate ca. ct abd showed cysitis and b/l renal cysts. also c/o diarrhea since admission but denies n/v/abd pain. no bleeding stool culture pending, c diff negative. UA in ER >30wbc and +1 bacteria, culture with >100,000 alpha strep, no sensitivies. Has been on zoysn and vanco, tolerating well. blood culture in ER 09/08, 12 sets grew gpr. wbc nml. Fever 37.9 on admission but now afebrile. tolerating abx. denies cp, sob, cough, eating well. overall feeling better. Allergies Allergy/AdvReac Type Severity Reaction Status Date / Time Bactrim Allergy Unknown . Verified 10/07/17 06:20 Home Medications Home Medications Medication Instructions Recorded Confirmed Type amlodipine 5 mg PO DAILY 09/08/18 09/08/18 History aspirin 81 mg PO DAILY 09/08/18 09/08/18 History brimonidine 1 drp OPHTHALMIC (EYE) BID 09/08/18 09/08/18 History dorzolamide 1 drp OPB BID 09/08/18 09/08/18 History enalapril maleate 10 mg PO DAILY 09/08/18 09/08/18 History finasteride 5 mg PO QPM 09/08/18 09/08/18 History latanoprost 1 drp OPB DAILY 09/08/18 09/08/18 History omeprazole 20 mg PO DAILY 09/08/18 09/08/18 History pilocarpine HCl 1 drp OPB QID 09/08/18 09/08/18 History prednisolone acetate 1 drp OPR QID 09/08/18 09/08/18 History primidone 100 mg PO DAILY 09/08/18 09/08/18 History tamsulosin 0.8 mg PO HS 09/08/18 09/08/18 History timolol 1 drp OPB BID 09/08/18 09/08/18 History Patient History Medical History Chest pain (Acute) Shortness of breath (Acute) Depression GERD (gastroesophageal reflux disease) Glaucoma HTN (hypertension), benign History of non-ST elevation myocardial infarction (NSTEMI) History of prostate cancer Tremor Surgical History History of appendectomy History of prostate surgery Family History Other Family history non-contributory Social History Communication Ability: Effective Hand Engraver Required: No Beliefs That Will Affect Care: None Current Living Situation: Other Current Living Situation Comment: correctional facility current occupation: incarcerated for at least 25 years; previously was an it auditor Other Information That Helps Us Care for You: No Feels Safe at Home: Yes Smoking Status: Current every day smoker Hx Alcohol Use: No Hx Substance Use: No Review of Systems all remaining ros reviewed and are negative Physical Exam Vital Signs (Past 24 Hours): Last Vital Signs Temp 36.6 C 09/12/18 07:05 Pulse 73 09/12/18 07:05 Resp 18 09/12/18 07:05 BP 125/69 09/12/18 07:05 Pulse Ox 97 09/12/18 07:05 Constitutional: WD/WN, vitals as above Eyes: PERRL, conjunctivae normal, anicteric sclerae ENMT: external ear and nose normal, oropharynx normal Neck: normal visual inspection Respiratory: normal respiratory effort, lungs clear to auscultation Auscultation: + diminished lung sounds Cardiovascular: RRR, no murmur, no edema Gastrointestinal (Abdomen): normal bowel sounds, soft, nontender, no hepatosplenomegaly Musculoskeletal: no cyanosis or clubbing, extremities motor strength 5/5 Skin: no rashes, warm and dry Psychiatric: A+Ox3, euthymic affect Results & Data Laboratory Results Microbiology 09/09/18 16:34 Blood Blood Culture - Preliminary No growth to date. 09/09/18 16:23 Blood Blood Culture - Preliminary No growth to date. 09/08/18 15:21 Blood Blood Culture - Preliminary Bacillus species not anthracis 09/08/18 15:11 Urine,Straight Cath Urine Culture - Final Alpha strep. not enterococcus 09/08/18 14:40 Blood Blood Culture - Preliminary No growth to date.
[2018-09-12] MEDS ORDERED: VANCOMYCIN HCL 1,000 MG in SODIUM CHLORIDE 0.9% 250 ML IV SCH (14:00)
[2018-09-12] MEDS: AMOXICILLIN/CLAVULANATE 875 MG TAB PO SCH ×2 (14:34→17:47)
[2018-09-12] MEDS ORDERED: LOPERAMIDE HCL 2 MG CAP PO PRN (15:32)
--- NOTE | 2018-09-12 21:22 | Hospitalist Progress Note ---
Date of Service September 12, 2018 Assessment & Plan (1) Sepsis: - POA - tachypnea, tachycardia, fever - with a urinary source; lactic was normal - sepsis is currently resolved and remains afebrile - CT Abd/Pelvis with evidence of cystitis and enlarged prostate - BCx x 1 with bacillus which is thought to be contaminant - F/U BCx with NGTD - UCx with alpha strep - Initially placed on Zosyn/Vanc but will convert to Augmentin to finish a total of 14 days of treatment - ID following - appreciate input (2) Acute UTI: - Treatment as above (3) Hematuria: - Possibly hemorrhagic prostatitis; improved with UTI treatment - H/O Prostate CA and enlarged prostate on CT - Urology consulted - bladder scan PRN and recommend F/U with [facility]-based Urologist (4) Enlarged prostate: - Flomax 0.8 mg HS and Finasteride 5 mg daily (5) History of prostate cancer: - NOTED - S/P surgery, unknown treatment due to lack of records and patien t recall Present on Admission?: No (6) Diarrhea: - CT initially revealed colonic fecal retention which could correlate with encoparesis however KUB without stool - C. diff is negative and stool studies pending but does not appear infectious - maybe worsened by Abx - Continue probiotics; Imodium PRN Present on Admission?: Yes (7) GERD (gastroesophageal reflux disease): - Continue PPI Present on Admission?: Yes (8) History of non-ST elevation myocardial infarction (NSTEMI): - Possibly more related to myocardial demand ischemia; no proven CAD - Continue ASA 81 mg daily Present on Admission?: Yes (9) HTN (hypertension), benign: - Continue to monitor BP - Amlodipine 5 mg daily and Enalapril 10 mg daily Present on Admission?: Yes (10) Elevated troponin: Troponin 0.1 on arrival, ECG without ischemic changes Serial troponin 0.105/0.196/0.8/0.3 Could be myocardial demand ischemia given tachycardia and demand in the setting of sepsis. 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 Which is ongoing and likely worsened by antibiotics Tolerating a diet without issue and denies abdominal pain. Verbalizes no other complaints Constitutional: + fatigue; no fever, no chills and no anorexia Eyes: no worsening vision Ear, Nose, Mouth, Throat: no sore throat and no dysphagia Respiratory: no cough and no dyspnea Cardiovascular: no chest pain, no palpitations and no edema Gastrointestinal: + diarrhea/loose stools; no abdominal pain, no nausea, no vomiting and no constipation Genitourinary (Male): no dysuria Integumentary: no rash Physical Exam Vital Signs (Past 24 Hours): Last Vital Signs Temp 36.4 C L 09/12/18 16:12 Pulse 68 09/12/18 16:12 Resp 20 09/12/18 16:12 BP 95/54 L 09/12/18 16:12 Pulse Ox 97 09/12/18 16:12 Constitutional: WD/WN, vitals as above Eyes: + anicteric sclerae ENMT: Ears: no hearing impairment Mouth: + oral mucosal abnormality (Dry mucous membranes) Neck: trachea midline Respiratory: normal respiratory effort, lungs clear to auscultation Cardiovascular: RRR, no murmur, no edema Gastrointestinal (Abdomen): Inspection/Auscultation: normal bowel sounds Percussion/Palpation: abdomen soft; abdomen nontender Musculoskeletal: Head/Neck/Chest: normocephalic, head atraumatic and neck supple Extremities: extremities normal to inspection; no cyanosis and no clubbing Skin: no rashes, warm and dry Neurologic: moves all extremities and awake; no focal motor deficits Psychiatric: A+Ox3, euthymic affect Genitourinary: no testicular masses, no penis abnormality (1) Sepsis Sepsis type: sepsis due to unspecified organism Qualified Code(s): A41.9 - Sepsis, unspecified organism
[2018-09-12] MEDS: TAMSULOSIN HCL 0.4 MG CAP PO SCH (21:43)
[2018-09-12] MEDS: FINASTERIDE 5 MG TAB PO SCH (21:43)
[2018-09-13] MEDS: PANTOprazole 40 MG TAB PO SCH (08:47)
[2018-09-13] MEDS: SACCHAROMYCES BOULARDII 250 MG CAP PO SCH (08:47)
[2018-09-13] MEDS: ENALAPRIL MALEATE 10 MG TAB PO SCH (08:47)
[2018-09-13] MEDS: AMOXICILLIN/CLAVULANATE 875 MG TAB PO SCH (08:47)
[2018-09-13] MEDS: AMLODIPINE BESYLATE 5 MG TAB PO SCH (08:47)
[2018-09-13] MEDS: ASPIRIN 81 MG ECTAB PO SCH (08:47)
[2018-09-13] MEDS: ENOXAPARIN INJ 40 MG/0.4 ML SYR SQ SCH (08:48)
[2018-09-13] MEDS: PRIMIDONE 50 MG TAB PO SCH (08:48)
[2018-09-13] MEDS: TIMOLOL MALEATE 0.5% OP SOLN 5 ML BTL OPB SCH (08:48)
[2018-09-13] MEDS: DORZOLAMIDE HCL 2% OPH SOLN 10 ML BTL OPB SCH (08:48)
[2018-09-13] MEDS: PILOCARPINE HCL 1% OP SOLN 15 ML BTL OPB SCH ×2 (08:48→13:00)
[2018-09-13] MEDS: BRIMONIDINE TARTRATE 0.2% 5ML OP SCH (08:48)
[2018-09-13] MEDS: prednisoLONE acetate 1% OP SUSP 5 ML BTL OPR SCH ×2 (08:49→13:00)
[2018-09-13] MEDS: LATANOPROST 0.005% OP SOLN 2.5 ML BTL OPB SCH (08:49)
[2018-09-13 09:17] LABS: Hematocrit (blood only) 28.5 % (42-52); Hemoglobin 9.4 g/dL (14.0-18.0); Mean Corpuscular Volume 85.1 fL (80-100); Mean Platelet Volume 10.6 fL (7.4-10.4); Platelet Count 159 K/uL (130-400); RDW Coefficient of Variation 14.7 % (11.5-14.5); RDW Standard Deviation 46.4 fL (36.4-46.3); Red Blood Count 3.35 M/uL (4.7-6.1); White Blood Count 6.99 K/uL (4.8-10.8)
--- NOTE | 2018-09-13 19:06 | Discharge Summary ---
Date of Service September 13, 2018 Admission HPI Per Admitting Provider This patient is a 77-year-old male prisoner with a history of prostate cancer, glaucoma, HTN, GERD, presumed tremor, and depression, with NSTEMI in 2011, who presents to the ER with fevers and chills, along with evidence of UTI on a catheterized sample at the present today. He apparently had a urine catheterization for retention approximately 1 week ago but that urine culture is reviewed in the records showed mixed darrion and there were no nitrates in the urinalysis at that time. Since then, he has had daily hematuria and then spiked a fever on the day of admission to 102.2. He had another catheterized sample which did show nitrates and given the fever and the tachycardia, he was sent to the ER for further evaluation. He denies any abdominal or flank pain. The retirement guards that are with him do report that he was not acting like himself and was more confused when he first came to the ER, but since receiving antibiotics and IV fluids, he is starting to return to normal mental status. He did have a mildly elevated troponin at 0.1 but denies any chest pain or shortness of breath. His ECG was unchanged from previous with an incomplete right bundle branch block and was with sinus tachycardia. He did not have a fever in the ER, however he was given Tylenol at the retirement prior to arrival. His urinalysis here was grossly abnormal, and he had doyle red urine that he was voiding spontaneously. In the ER, he was given IV fluids, IV vancomycin and Zosyn. He will be admitted for sepsis, UTI, and gross hematuria. Principal Diagnosis Sepsis 2/2 UTI; Diarrhea Discharge Exam Constitutional WD/WN, vitals as above Eyes PERRL, conjunctivae normal, anicteric sclerae + anicteric sclerae ENMT Ears: no hearing impairment Nose: no external nose abnormality Mouth: + oral mucosal abnormality (Dry mucous membranes) Neck trachea midline, no thyromegaly trachea midline Respiratory normal respiratory effort, lungs clear to auscultation Cardiovascular RRR, no murmur, no edema Gastrointestinal (Abdomen) normal bowel sounds, soft, nontender, no hepatosplenomegaly Inspection/Auscultation: normal bowel sounds Percussion/Palpation: abdomen soft; abdomen nontender Musculoskeletal Head/Neck/Chest: normocephalic, head atraumatic and neck supple Extremities: extremities normal to inspection; no cyanosis and no clubbing Skin no rashes, warm and dry Neurologic moves all extremities and awake; no focal motor deficits Psychiatric A+Ox3, euthymic affect Genitourinary no testicular masses, no penis abnormality Discharge Data Allergies Allergy/AdvReac Type Severity Reaction Status Date / Time Bactrim Allergy Unknown . Verified 10/07/17 06:20 Consultations 09/08/18 16:28 ED Decision to Admit Stat 09/08/18 18:47 Consult Urology Routine 09/11/18 10:19 Consult Infectious Diseases Routine Ordered Studies CT SCAN OF THE ABDOMEN AND PELVIS WITH IV CONTRAST FINDINGS: Lung bases: The heart is normal in size and without pericardial effusion. Advanced emphysematous change is seen at the lung bases. There is bibasilar scarring/atelectasis. No airspace consolidation or pleural effusion is identified. Calcified granulomas are seen in the left lower lobe. Liver: The contrast-enhanced liver is normal in size, contour, and attenuation. There is no intrahepatic biliary ductal dilatation. The hepatic veins and portal veins are patent. Gallbladder: Unremarkable. Spleen: Normal in size and attenuation. Pancreas: The pancreas is moderately atrophic. Adrenal glands: Unremarkable. Kidneys: The contrast enhanced kidneys demonstrate mild cortical atrophy and are without hydronephrosis. The kidneys enhance symmetrically. Numerous bilateral renal cysts measure up to 5 cm. Additional subcentimeter cortical hypodensities also likely represent cysts but are too small for definitive characterization. No enhancing cortical mass is seen. Abdominal vasculature: There is advanced atherosclerotic calcification and mild ectasia of the abdominal aorta. Bowel: There is colonic fecal retention. No bowel obstruction is seen. The appendix is not identified and reported surgically absent. Peritoneum: There is no intraperitoneal free air or abdominal ascites. Lymphadenopathy: None. Pelvic viscera: The prostate gland is enlarged and heterogeneous, measuring 5.5 cm in transverse diameter. There is median lobe hypertrophy. The bladder wall is thickened and trabeculated, indicating chronic outlet obstruction. The bladder wall appears hyperemic and there is pericystic stranding. A bladder diverticulum is seen posteriorly on the left and measures up to 1.9 cm (axial image #[id number]). Skeletal structures: The skeletal structures are osteopenic. Lumbosacral spondylosis is observed. No lytic or blastic lesions are seen. IMPRESSION: 1. Motion degraded examination. 2. Findings are typical for cystitis. Correlation with clinical findings and urinalysis will be required. 3. Prostatomegaly with evidence of chronic bladder outlet obstruction. 4. Advanced emphysema. 5. Numerous bilateral renal cysts measure up to 5 cm. 6. Additional findings as above. Hospital Course (1) Sepsis: - POA - tachypnea, tachycardia, fever - with a urinary source; lactic was normal - sepsis is currently resolved and remains afebrile - CT Abd/Pelvis with evidence of cystitis and enlarged prostate - BCx x 1 with bacillus which is thought to be contaminant - F/U BCx with NGTD - UCx with alpha strep - Initially placed on Zosyn/Vanc but converted to Augmentin to finish a total of 14 days of treatment - ID followed (2) Acute UTI: - Treatment as above (3) Hematuria: - Possibly hemorrhagic prostatitis; improved with UTI treatment - H/O Prostate CA and enlarged prostate on CT - Urology consulted - bladder scan PRN and recommend F/U with [facility]-based Urologist (4) Enlarged prostate: - Flomax 0.8 mg HS and Finasteride 5 mg daily (5) History of prostate cancer: - NOTED - S/P surgery, unknown treatment due to lack of records and patient recall (6) Diarrhea: - CT initially revealed colonic fecal retention which could correlate with encoparesis however KUB without stool - C. diff is negative and stool studies pending but does not appear infectious - maybe worsened by Abx - Continue probiotics; Imodium PRN (some bulking of stool with initial dose) (7) GERD (gastroesophageal reflux disease): - Continue PPI (8) History of non-ST elevation myocardial infarction (NSTEMI): - Possibly more related to myocardial demand ischemia; no proven CAD - Continue ASA 81 mg daily (9) HTN (hypertension), benign: - Continue to monitor BP - Amlodipine 5 mg daily and Enalapril 10 mg daily (10) Elevated troponin: - Troponin 0.1 on arrival, ECG without ischemic changes - Serial troponin 0.105/0.196/0.8/0.3 - Could be myocardial demand ischemia given tachycardia and demand in the setting of sepsis. 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 is going non- smoking - No acute respiratory issues; Nicotine patch if needed (12) Anemia: - Normocytic - outpatient labs support anemia of chronic disease (13) Glaucoma: - Stable - Continue home eyedrops (14) Tremor: - Presumed diagnosis given that he is on primidone - Continue primidone (15) Depression: - Stable Total Time Total Time Spent Total Time Spent (In Minutes): Greater than 30 minutes Discharge Plan Discharge Items [facility] Reason For Visit: SEPSIS,UTI Discharge Diagnosis: Sepsis from Urinary Tract Infection Discharge Goals: Decrease discomfort, Improve disease control and Prevent disease Activity: Resume your previous activity Non-emergency contact: Primary Care Provider Call non-emergency contact if: you have any medication questions, your symptoms worsen and you have a fever Follow-up/Referrals: Kaleb DIAZ [Primary Care Provider] - Diet: Heart Healthy Addtl Provider Instructions: Sepsis from UTI: - Currently resolved - cx only grew alpha strep but symptoms improved with antibiotics and will finish treatment course - Continue Augmentin BID until 09/21 to complete a 14 day course Hematuria: - Possibly hemorrhagic prostatitis; improved with UTI treatment - H/O Prostate CA and enlarged prostate on CT - Urology consulted - recommend F/U with retirement-based Urologist to consider cystoscopy if hematuria continues Enlarged prostate: - Flomax 0.8 mg HS and Finasteride 5 mg daily History of prostate cancer: - NOTED - S/P surgery, unknown treatment due to lack of records and patient recall Diarrhea: - CT initially revealed colonic fecal retention which could correlate with encoparesis however KUB without stool and no identified infectious source; c. diff is negative - Continue probiotics; Imodium PRN (seemed to form more once utilizing this) HTN (hypertension), benign: - Amlodipine 5 mg daily and Enalapril 10 mg daily Elevated troponin: - Troponin 0.1 on arrival but continued to decline, ECG without ischemic changes; no acute cardiac symptoms - Could be myocardial demand ischemia given tachycardia and demand in the setting of sepsis Anemia: - Normocytic - outpatient labs support anemia of chronic disease Prescriptions: New loperamide 2 mg Capsule 2 mg PO Q2H PRN (Reason: loose stool) 7 Days Qty: 20 RF: 0 amoxicillin-pot clavulanate 875-125 mg Tablet 1 tab PO BIDM Qty: 17 RF: 0 Florastor 250 mg Capsule 250 mg PO DAILY 30 Days Qty: 30 RF: 0 Continued latanoprost 0.005 % Drops 1 drp OPB DAILY RF: 0 primidone 50 mg Tablet 100 mg PO DAILY RF: 0 pilocarpine HCl 1 % Drops 1 drp OPB QID RF: 0 enalapril maleate 10 mg Tablet 10 mg PO DAILY RF: 0 amlodipine 5 mg Tablet 5 mg PO DAILY RF: 0 prednisolone acetate 1 % Drops,Suspension 1 drp OPR QID RF: 0 tamsulosin 0.4 mg Capsule 0.8 mg PO HS RF: 0 timolol 0.5 % Drops 1 drp OPB BID RF: 0 brimonidine 0.2 % Drops 1 drp OPHTHALMIC (EYE) BID RF: 0 aspirin 81 mg Tablet,Chewable 81 mg PO DAILY RF: 0 finasteride 5 mg Tablet 5 mg PO QPM RF: 0 dorzolamide 2 % Drops 1 drp OPB BID RF: 0 omeprazole 20 mg Tablet,Delayed Release (Dr/Ec) 20 mg PO DAILY RF: 0 Stand-Alone Forms: [facility] Discharge Orders: Discharge Order (Routine); Ordered 09/13/18 Ordered By: Cindy Trent Admission Data Admit Date/Time: 09/08/18 17:34 Attending Provider: Kalin Nunn Admit Provider: Aye Henderson Primary Care Provider: Kaleb DIAZ Other Providers: Aye Henderson ; Aren Campos ; Hipolito Fraire Service: Medical Other Interventions: Discharge Summary Assessment (RN) Last Done: 09/13/18 11:06 DC Date/Time DO NOT enter until pt leaves facility: 09/13/18 14:20
[2018-09-14] MEDS ORDERED: VANCOMYCIN TROUGH ONE (01:30)
== END 2018-09-13 14:20 | DRG 872 ==
LOC: ED 14:23 → SUATTDRO 17:34 → 2W 17:34 → 4W 09-09 19:53